=== PATIENT | male | born 1950 | race Caucasian/White ===

== ENCOUNTER → 2021-05-31 | Outpatient (CLI) | payer MEDICARE ==
--- NOTE | 2021-05-31 17:11 | US ---
EXAMINATION TYPE: US duplex aorta DATE OF EXAM: 05/31/2021 COMPARISON: NONE CLINICAL HISTORY: Z13.6 AAA. HTN controlled with meds. EXAM MEASUREMENTS: Abdominal Aorta: Proximal: 2.4 x 2.9 cm Mid: 2.0 x 2.4 cm Distal: 2.5 x 2.9 cm Bifurcation: Right - 1.1 x 1.1 cm Left- 1.3 x 0.8 cm Prominent distal bulge = 2.7 x 3.0 cm IMPRESSION: There is some fusiform prominence of the mid to distal abdominal aorta with an AP diamete r of 2.7 cm.
== END | disposition home or self-care (01) ==
LOC: CPPFTMAIN 06:57
PROVIDERS: ATTEND Internal Medicine
DX: Z13.6 Encounter for screening for cardiovascular disorders (principal); Z87.09 Personal history of other diseases of the respiratory system
CPT/HCPCS: 93979; 94060; 94726; 94729

== ENCOUNTER → 2021-09-06 | Outpatient (CLI) | payer MEDICARE ==
--- NOTE | 2021-09-06 15:15 | CTL ---
EXAMINATION TYPE: CT Low Dose Lung DATE OF EXAM ORDERED: 09/06/2021 HISTORY: Nicotine dependence. Lung cancer screening CT DLP: 92.[address] CTDI: 2.6 mGy Automated exposure control for dose reduction was used. SCREENING VISIT: First screening COMPARISON: None TECHNIQUE: Low dose computed tomography scan was performed through the chest at 1 mm thick sections a nd reconstructed images in multiple planes at 1 mm and [address] DIAGNOSTIC QUALITY: Satisfactory FINDINGS: LUNG NODULES/PARENCHYMA: No pulmonary nodules. Peripheral right upper lobe pleural parenchymal scarri ng. LUNGS: COPD: Severity: None Fibrosis: Severity: None Lymph nodes: None Other findings: None RIGHT PLEURAL SPACE: Effusion: None Calcification: None Thickening: None Pneumothorax: None LEFT PLEURAL SPACE: Effusion: None Calcification: None Thickening: None Pneumothorax: None HEART: Heart Size: Normal Coronary Calcification: Small Pericardial Effusion: None OTHER FINDINGS: Upper abdomen: None Bony thorax: None Supraclavicular region: None Other: None IMPRESSION: No concerning pulmonary nodules. CT LUNG RAD AND CT CHEST RECOMMENDATION: Lung-Rad 1 Negative: Continue annual screening with LDCT in 12 months. S Modifier (other clinically significant findings): None
== END | disposition home or self-care (01) ==
LOC: RADCTMAIN 13:17
PROVIDERS: ATTEND Internal Medicine
DX: Z12.2 Encounter for screening for malignant neoplasm of respiratory organs (principal); Z87.891 Personal history of nicotine dependence
CPT/HCPCS: 71271

== ENCOUNTER → 2021-09-13 | Outpatient (CLI) | payer MEDICARE ==
[~2021-09-13] MED LIST: REGADENOSON 0.4 MG/5 ML SYRINGE IV PRN
--- NOTE | 2021-09-13 09:17 | US ---
EXAMINATION TYPE: US liver DATE OF EXAM: 09/13/2021 COMPARISON: NONE CLINICAL HISTORY: R06.00 DYSPNEA. Abnormal labs TECHNIQUE: Multiple sonographic images of the right upper quadrant are obtained. FINDINGS: EXAM MEASUREMENTS: Liver Length: 22 cm Gallbladder Wall: 0.2 cm CBD: 0.4 cm Right Kidney: 11.8 x 5.5 x 6.5 cm ERISA ATTORNEY NOTES: Large pt body habitus Pancreas: Obscured by bowel gas, and pt's large size Liver: Enlarged, heterogeneous, difficult to penetrate. Hyperechoic echotexture. Gallbladder: wnl Evidence for sonographic Leo's sign: No CBD: wnl Right Kidney: No evidence of hydro, echogenic focus upper pole= 0.6 x 0.6 cm IMPRESSION: 1. Hepatocellular disease most commonly relating to hepatic steatosis. 2. No obstructive right renal calculus.
--- NOTE | 2021-09-13 12:27 | CA ---
Lexiscan Nuclear Stress Test Report Name: Emile Youngblood Exam Date: 09/13/2021 09:36 Exam Location: [place] Stress Ht (in): 69 Wt (lb): 260 BSA: 2.31 Ordering Phys: Jr Parmar MD Referring Phys: RALPH, Technologist: Slim Pérez Age: 70 Gender: M : 1950 Procedure CPT: Indications: R06.00 Dyspnea ICD-10 Codes: Patient History: Medications: ATORVASTATIN, EZETIMIBIDE, FLEXOROL, ASPIRIN, JASON, D3 Meds past 24 hrs: Pretest Chest Pain: STRESS TEST Lexiscan Protocol Exercise Duration (min:sec): 02:[address] Depressions (mm): Angina Score: Darden Score: Resting HR (bpm): 72 Peak HR (bpm): 85 Resting BP (mmHg): 133 / 84 Peak BP (mmHg): 145 / 90 MPHR: 152 Target HR: 129 % MPHR: 56 METS: 1.0 Total Dose: Peak Dose: Atropine: Double Product: 64797 BP Response: Stress Termination: Stress Symptoms: NO SYMPTOMS Stress Summary: ECG ANALYSIS Resting ECG: Stress ECG: CONCLUSIONS Baseline heart rate 74 beats a minute, Baseline blood pressure 133/84 mmHg Patient received Lexiscan infusion per protocol No ECG evidence of ischemia No arrhythmias Nuclear portion will be reported separately Dr. Shant Noriega MD (Electronically Signed) Final Date: 13 September 2021 12:26
--- NOTE | 2021-09-13 16:38 | NM ---
EXAMINATION TYPE: NM stress lexiscan cardiolite DATE OF EXAM: 09/13/2021 COMPARISON: NONE HISTORY: Dyspnea TECHNIQUE: After the intravenous administration of 10.2 mCi Tc 99m Sestamibi - Cardiolite resting SP ECT images acquired 65 minutes post injection. At peak stress 24.6 mCi Tc 99m Sestamibi - Stress images obtained 45 minutes post injection The patient was stressed with 0.4mg Lexiscan. FINDINGS: No fixed or reversible perfusion defects are evident. Color maps appear normal. Gated wall motion dipak ears normal. Ejection fraction of 63% is normal. Polar maps are normal. IMPRESSION: 1. No stress-induced ischemic change
== END | disposition home or self-care (01) ==
LOC: RADUSWWP 06:43
PROVIDERS: ATTEND Internal Medicine
DX: R74.01 Elevation of levels of liver transaminase levels (principal); R06.00 Dyspnea, unspecified
CPT/HCPCS: 93017; 76705; 78452; A9500; J2785

== ENCOUNTER → 2022-06-28 | Outpatient (CLI) | payer MEDICARE ==
--- NOTE | 2022-06-28 11:15 | US ---
EXAMINATION TYPE: US duplex aorta DATE OF EXAM: 06/28/2022 COMPARISON: 05/31/21 CLINICAL INDICATION: Male, 71 years old with history of I71.40 AAA; ectatic distal ao TECHNIQUE: Multiple sonographic images of the abdominal aorta are obtained. FINDINGS: EXAM MEASUREMENTS: Abdominal Aorta: Proximal: 3.2 x 3.2 cm Mid: 2.3 x 2.8 cm Distal: 3.1 x 3.8 cm Bifurcation: right ADRIANE: 1.3x1.2 left ADRIANE: 1.4x1.2 TOYS INSPECTOR NOTES: Proximal Aorta measures aneurysmal, distal fusiform bulging area noted on previous exam again seen on today's ultrasound. exam limited due to body habitus and overlying bowel gas IMPRESSION: Fusiform dilation of the proximal aorta up to 3.[address] cm[address] to prior CT in 2021 appears stable giv en differences in technique.
== END | disposition home or self-care (01) ==
LOC: RADUSWWP 10:03
PROVIDERS: ATTEND Internal Medicine
DX: I71.40 Abdominal aortic aneurysm, without rupture, unspecified (principal)
CPT/HCPCS: 93979

== ENCOUNTER → 2022-07-20 | Outpatient (CLI) | payer MEDICARE ==
[2022-07-20 14:09] LABS: African American GFR (CKD) >90 (>60 ml/min/1.73 sqM); Blood Urea Nitrogen 18 mg/dL (9-20); Non-African American GFR(CKD) 89 (>60 ml/min/1.73 sqM)
--- NOTE | 2022-07-20 20:48 | CT ---
EXAMINATION TYPE: CT angio abd aorta w/Runoff CT DLP: 3304.30 mGycm, Automated exposure control for dose reduction was used. DATE OF EXAM: 07/20/2022 3:46 PM COMPARISON: Aortic ultrasound 06/28/2022, 05/31/2021, liver ultrasound 09/13/2021. CLINICAL INDICATION:Male, 71 years old with history of I71.40; PHH, Abdominal aorta without rupture, some numbness through legs. TECHNIQUE: Multiple thin slice sub-millimeter images were obtained through the abdomen, pelvis, and l ower extremities before and after administration of contrast. Patient was given Isovue 370, 125 cc i ntravenously. Maximum intensity projection images were obtained of the abdomen, pelvis, and lower ext remities. FINDINGS: CTA Abdomen and pelvis: Stable infrarenal fusiform abdominal aortic aneurysm measuring up to the 3.1 cm (series 5, image 129). Atherosclerotic plaquing is identified within the abdominal aorta. The misbah gins of the superior mesenteric artery, renal arteries, inferior mesenteric artery, and celiac axis a re patent. Incidental variant of common hepatic artery replaced from the SMA. Atherosclerotic plaqui ng with some mural thrombus formation is identified in the common iliac arteries. There is approxima tely 50% short segment stenosis of the right common iliac artery secondary to calcified and noncalcif ied plaque. CTA Lower extremities: Right: The common femoral and superficial femoral arteries are patent. The popliteal artery is patent . Mild atherosclerotic plaque involving the distal aspect of the superficial femoral artery. Anterior and posterior tibial arteries as well as the peroneal artery are patent. Anterior and posterior tibi al arteries cross the ankle. Left: The common femoral and superficial femoral arteries are patent. The popliteal artery is patent. Mild atherosclerotic plaque involving the distal aspect of the superficial femoral artery. Anterior and posterior tibial arteries as well as the peroneal artery are patent. Anterior and posterior tibia l arteries cross the ankle. VISCERA: The liver, spleen, adrenal glands, kidneys, pancreas, and gallbladder are not optimally enha nced due the arterial phase utilized. LIVER: Diffusely hypoattenuating parenchyma consistent with steatosis. Subcentimeter right hepatic lo be hypodense focus likely representing a shunt or flash filling hemangioma (series 5, image 107). GALLBLADDER AND BILE DUCTS: Unremarkable. PANCREAS: Unremarkable. SPLEEN: Peripheral thin calcification. ADRENAL GLANDS: Unremarkable. KIDNEYS AND URETERS: No evidence of hydronephrosis or renal calculus. The kidneys enhance symmetrical ly. Bilateral subcentimeter hypoattenuating foci which are too small characterize but likely represen t cysts. PELVIS BLADDER: Under distended but grossly unremarkable. REPRODUCTIVE: Coarse calcifications of the prostate gland are identified. ABDOMEN & PELVIS STOMACH AND BOWEL: Stomach and duodenum are unremarkable. No focal bowel wall thickening or surroundi ng inflammatory changes. The appendix is within normal limits. Distal colonic diverticulosis without evidence for acute diverticulitis. No evidence of bowel obstruction. PERITONEUM: No evidence of pneumoperitoneum or free fluid. VASCULATURE: No evidence of aortic aneurysm. MUSCULOSKELETAL: No acute osseous abnormalities. Mild to moderate multilevel degenerative disease mos t prominent involving the lumbar spine. Minimal retrolisthesis of L3 on L4. LYMPH NODES: No gross evidence for lymphadenopathy. SOFT TISSUE/ABDOMINAL WALL: Small fat filled umbilical hernia. Bilateral fat filled inguinal hernias. LOWER CHEST: The visualized lung bases are clear. Lingular 4 mm pulmonary nodule (series 6, image 25) . In a high risk patient, optional CT chest in 12 months. In a low-risk patient, no follow-up is isai mmended. Mild coronary arterial calcifications. Aortic valvular calcifications. IMPRESSION 1. No evidence of vascular occlusion. 2. Redemonstration of infrarenal abdominal aortic aneurysm measuring up to 3.1 cm. 3. Mild atherosclerotic disease involving abdominal aorta and lower extremity vasculature. This is m ost pronounced involving the right common iliac artery with approximately 50% stenosis secondary to c alcified and noncalcified plaque. 4. At least two vessels are seen crossing the ankle joint.
== END | disposition home or self-care (01) ==
LOC: RADCTMAIN 13:23
PROVIDERS: ATTEND Internal Medicine
DX: I71.43 Infrarenal abdominal aortic aneurysm, without rupture (principal); I70.0 Atherosclerosis of aorta
CPT/HCPCS: 82565; 84520; 75635; Q9967

== ENCOUNTER → 2022-09-07 | Outpatient (CLI) | payer MEDICARE ==
--- NOTE | 2022-09-07 14:38 | CTL ---
EXAMINATION TYPE: CT Low Dose Lung DATE OF EXAM: 09/07/2022 11:06 AM CLINICAL INDICATION:Male, 71 years old with history of Z12.2 F17.210; personal tobacco use , history of tobacco use. COMPARISON: 09/06/2021. TECHNIQUE: Multiple axial non-contrast scans were obtained from approximately the lung apices through the upper abdomen. Coronal and sagittal reformatted images were obtained. Low dose technique was uti lized. CT DLP: 147 mGycm, Automated exposure control for dose reduction was used. CT Contrast: Contrast used: None Oral contrast used: None FINDINGS: ======== Lack of intravenous contrast and low dose technique limits the evaluation of the vascular and soft ti ssue structures. LUNGS: No evidence of pulmonary fibrosis. No evidence of focal consolidation, pneumothorax or pleural effusion. Mild centrilobular emphysema changes are seen throughout the lungs. Nodules: RUL: Increased soft tissue within the right upper lung irregular shaped consolidation comparing t o prior on 09/06/2021. RML: 3 mm series 3 image 167 RLL: None. PANDA: 4 mm series 3 image 88. Stable. LLL: None. AIRWAY: Patent and unremarkable. HEART: Size within normal limits. Aortic valve leaflet calcifications. Coronary artery cusp patient's . MEDIASTINUM: No gross evidence of adenopathy. VASCULATURE: Atherosclerotic calcifications are present throughout the aorta and its branches. MUSCULOSKELETAL: Mild disc degeneration changes are present throughout the thoracolumbar spine. SOFT TISSUES/LYMPH NODES: Unremarkable. LOWER NECK: No significant findings. UPPER ABDOMEN: No significant findings. IMPRESSION: Limited right upper lung which appear more prominent exam. Given increase in solid component compared to prior which is minimal, Consideration for PET/CT may be of benefit to rule out underlying neoplas m. No lymphadenopathy.77 CT LUNG RAD AND CT CHEST RECOMMENDATION: Lung-Rad 4A Suspicious: PET/CT S Modifier (other clinically significant findings): None Recommend smoking cessation (if current smoker), or continuation of smoking cessation (if prior smoke r). Annual screening for lung cancer with low-dose computed tomography is recommended in adults ages 55 to 77 years who have a 30 pack-year smoking history and currently smoke or have quit within the pa st 15 years. Screening should be discontinued once a person has not smoked for 15 years or develops a health problem that substantially limits life expectancy or the ability or willingness to have curat agnieszka lung surgery. Lung rads 2021 [email or web address]
== END | disposition home or self-care (01) ==
LOC: RADCTMAIN 10:35
PROVIDERS: ATTEND Internal Medicine
DX: Z12.2 Encounter for screening for malignant neoplasm of respiratory organs (principal); R91.1 Solitary pulmonary nodule; Z87.891 Personal history of nicotine dependence
CPT/HCPCS: 71271

== ENCOUNTER → 2022-10-21 | Outpatient (CLI) | payer MEDICARE ==
--- NOTE | 2022-10-22 21:19 | PE ---
EXAMINATION TYPE: PET CT fusion skull to thigh DATE OF EXAM: 10/21/2022 CLINICAL INDICATION:Male, 72 years old with history of R91.1; TECHNIQUE: Following the intravenous administration of 12.2 mCi of F-18 FDG, whole body images are performed from the skull base to the midthigh. Images are reviewed on the computer in the coronal, a xial, and sagittal planes. Reconstructed rotating images are created on independent workstation and reviewed on the computer. A non-contrast CT is performed in conjunction with the PET scan. Glucose level 84 mg/dL CT DLP: 527.4 mGycm, Automated exposure control for dose reduction was used. COMPARISON: CT 09/07/2022: 09/06/2021, PET/CT None, FINDINGS: Mediastinal SUV mean is 2.4. Hepatic parenchyma SUV mean is 4.5. SKULL BASE AND NECK: No suspicious radiotracer activity. CHEST, MEDIASTINUM, AND HILAR REGION: Peripheral right upper lung irregular shaped consolidation like change which appears to increased in consolidation compared to 09/06/2021 Max SUV 3.8 ABDOMEN AND PELVIS: No suspicious radiotracer activity. MUSCULOSKELETAL STRUCTURES: No suspicious radiotracer activity. OTHER CT: Atherosclerosis of the carotid bifurcations. Mild coronary artery calcifications. Scattered colonic diverticula. Bilateral fat-containing inguinal hernias. Infrarenal abdominal aorta aneurysma l fusiform dilation up to 3.1 cm. Fat-containing umbilical hernia. Scattered colonic diverticula. IMPRESSION: 1. Right upper lung consolidation like changes with mild FDG activity. Findings are suspicious for u nderlying neoplasia given the lesion has steadily increased in consolidation/soft tissue component co mpared to 09/06/2021. Infectious/inflammatory process could remain in the differential as well. Consid er robotic navigational bronchoscopy with tissue sampling. 2. Diffuse elevated background FDG activity within the liver correlate with serum markers.
== END | disposition home or self-care (01) ==
LOC: RADPETMAIN 10:34
PROVIDERS: ATTEND Internal Medicine
DX: R91.1 Solitary pulmonary nodule (principal); R94.5 Abnormal results of liver function studies
CPT/HCPCS: 78815; A9552

== ENCOUNTER → 2022-11-15 | Day surgery (SDC) | payer MEDICARE ==
[2022-11-10 15:18] VITALS: BMI 38.4
[~2022-11-15] MED LIST changes: +GLYCOPYRROLATE 0.2 MG/ML 2 ML VIAL ONE; +HYDROmorphone 0.5 MG/0.5 ML SYRINGE IVP PRN; +LACTATED RINGERS 1,000 ML IV SCH; +LIDOCAINE 2% INJ 20 MG/ML (2 ML VIAL) ONE; +MIDAZOLAM 2 MG/2 ML VIAL ONE; +NEOSTIGMINE 1 MG/ML 10 ML VIAL ONE; +ONDANSETRON 4 MG/2 ML VIAL IVP ONE; +PHENYLEPHRINE-0.9% NACL SYG 1,000 MCG/10 ML SYRINGE ONE; +PROPOFOL 10 MG/ML 20 ML VIAL IV ONE; -REGADENOSON 0.4 MG/5 ML SYRINGE IV PRN; +ROCURONIUM 10 MG/ML (5 ML VIAL) IV ONE; +SODIUM CHLORIDE 0.9% 500 ML 500 ML IV ONE; +SUCCINYLCHOLINE CHLORIDE 200 MG/10 ML VIAL IV ONE; +fentaNYL (PF) 50 MCG/ML 2 ML AMP ONE
--- NOTE | 2022-11-15 12:38 | CT ---
EXAMINATION TYPE: CT chest wo con CT DLP: 976.2 mGycm, Automated exposure control for dose reduction was used. DATE OF EXAM: 11/15/2022 12:15 PM COMPARISON: 10/21/2022/CT CLINICAL INDICATION:Male, 72 years old with history of R91.1 Solitary Pulmonary Nodule; PHH, Solitary Pulmonary Nodule. pre ion procedure TECHNIQUE: Multiple axial images were obtained through the chest. Sagittal and coronal reformats were created for review. Contrast used: mL of (None if empty) Oral contrast used: (None if empty) FINDINGS: LUNGS/ PLEURA: Right upper lung cystic and solid lesion remains present and may be mildly increased i n size in soft tissue component compared to prior. Whether this presents irregular shaped neoplasm ve rsus consolidation from atelectasis is unclear. The soft tissue component measuring 17 x 8 mm anterio rly and superiorly was previously 16 x 7 mm and previously on 09/05/2022 this area was not well visual ized. No evidence for focal consolidation pneumothorax or pleural effusion. AIRWAY: Patent and unremarkable. HEART: Size within normal limits. MEDIASTINUM: No gross evidence of adenopathy. No greater than 1.0 cm short axis lymph nodes identifie d VASCULATURE: No aortic aneurysm. MUSCULOSKELETAL: No acute osseous abnormalities SOFT TISSUES/LYMPH NODES: Unremarkable. LOWER NECK: No significant findings. UPPER ABDOMEN: No significant findings. IMPRESSION: There may be mild fractionally larger soft tissue component of this right upper lung irregular shaped cystic and solid mass compared to immediate prior on 10/21/2022. It is definitely increased since 09/05.
--- NOTE | 2022-11-15 15:47 | FL ---
Intraoperative/procedural fluoroscopic services were provided for fluoroscopic guided bronchoscopy. T otal fluoroscopy time is 3.07 minutes with a total of 1 submitted image to PACS. Total DAP 16.838 Gyc m2. Please see the operative note for further details.
[2022-11-15 15:53] VITALS: TEMP 97.9
--- NOTE | 2022-11-15 15:54 | P.PCN ---
Date of Procedure: 11/15/22 Operative Findings: Preoperative Diagnosis: Right upper lobe nodule Postoperative Diagnosis: Right upper lobe nodule Procedure(s) Performed: Flexible bronchoscopy Robotic-assisted bronchoscopy and addition to radial ultrasound evaluation of the pulmonary nodule Robotic-assisted transbronchial needle aspirate, transbronchial biopsies of the right upper lobe nodule in addition to a bronchioloalveolar lavage Anesthesia: DESTINEE Surgeon: Manfred Medeiros Estimated Blood Loss (ml): 0 Pathology: other Condition: stable Disposition: same day Operative Findings: A physical exam was performed. Informed consent was obtained from the patient after explaining all the risks (pneumothorax, life threatening bleeding, infection and adverse effects due to medications), benefits and alternatives to the procedure which the patient appeared to understand and so stated. The patient was connected to the monitoring devices. General anesthesia was induced and the patient was intubated by anesthesia. A final timeout was performed and the procedure confirmed by the attending staff bronchoscopist. The bronchoscope was inserted and the airway examined. The flexible bronchoscope was removed and the robotic bronchoscope was inserted. Registration was completed. I next guided the robotic bronchoscope using the navigation system into the right upper lobe posterior segment. Once in proper position, the bronchoscope was frozen. The radial EBUS probe was placed through the bronchoscope and confirmed abnormal u/s images vs normal lung. A needle was placed through the working channel and under fluoroscopic guidance, we sampled the area thought to have the mass twice. We then used a cloud biopsy pattern with ultrasound confirmation for 2 additional passes with the needle. U/S evaluation was then used to reconfirm location. Forceps were next introduced through working channel and extended the appropriate distance and 3 transbronchial biopsies were performed using fluoroscopic guidance. The u/s probe was then reinserted to confirm location. When confirmed this process was repeated for a total of 6 transbronchial biopsies. After reassessment with EBUS, a brush was placed through the extendable working channel for 1 pass with fluoroscopic guidance. U/S evaluation was then used to confirm location. 40ml of saline was then instilled into the area of the lesion. The robotic bronchoscope was removed and the airway inspected with a flexible bronchoscope and 10 ml of effluent from the BAL was collected. The aspirate was bloody and ultimately declotted and based on that, the sample was discarded. Flex. bronchoscope was inserted and regular suctioning was done. At the completion of the procedure, no residual secretions or bloody material within the airway. The bronchoscope was removed. The patient was extubated. FINDINGS: 1.The airways appeared normal 2 Successful navigation, ultrasonographic identification, and biopsies of right upper lobe pulmonary nodule 3.The the radial ultrasound view was (Concentric/Eccentric)}. RECOMMENDATIONS: Await pathology and cytology results The referring physician will be alerted to the results when available. The patient was advised to follow up with the referring physician with the biopsy results Patient will be called with results.
--- NOTE | 2022-11-15 16:12 | XR ---
EXAMINATION TYPE: XR chest 1V portable DATE OF EXAM: 11/15/2022 4:08 PM COMPARISON: CT chest 11/15/2022 TECHNIQUE: XR chest 1V portable Portable AP radiograph of the chest. CLINICAL INDICATION:Male, 72 years old with history of POST BRONCH; FINDINGS: Lungs/Pleura: There is no evidence of pleural effusion, focal consolidation, or pneumothorax. Pulmonary vascularity: Unremarkable. Heart/mediastinum: Cardiomediastinal silhouette is unremarkable. Musculoskeletal: No acute osseous pathology. IMPRESSION: Post bronchoscopy without evidence for pneumothorax.
[2022-11-15 16:16] VITALS: RESP 20
[2022-11-15 16:50] VITALS: BP 128/76; PULSE 86
== END ==
LOC: ORWHC2ENDO 11:45
PROVIDERS: ATTEND Internal Medicine Critical Care Medicine
DX: R91.1 Solitary pulmonary nodule (principal); I10 Essential (primary) hypertension; E78.5 Hyperlipidemia, unspecified; F17.200 Nicotine dependence, unspecified, uncomplicated; M19.90 Unspecified osteoarthritis, unspecified site; K76.0 Fatty (change of) liver, not elsewhere classified; Z79.1 Long term (current) use of non-steroidal anti-inflammatories (NSAID); Z79.82 Long term (current) use of aspirin; Z79.899 Other long term (current) drug therapy; Z98.890 Other specified postprocedural states
CPT/HCPCS: 88108; 88305; 87070; 87205; 87116; 87102; 87206; 71045; 71250; 31628; 31629; 31624; J2250; J0330; J2710; J2405; J3010; J2704; J2001; J2371; S2900

== ENCOUNTER → 2023-05-22 | Outpatient (CLI) | payer MEDICARE ==
--- NOTE | 2023-05-22 10:36 | MR ---
EXAMINATION TYPE: MR knee LT wo con DATE OF EXAM: 05/22/2023 COMPARISON: None HISTORY: Left knee pain and swelling x1 year TECHNIQUE: Multiplanar, multisequence imaging of the left knee is performed without IV contrast. FINDINGS: MEDIAL MENISCUS: There is a complex tear involving posterior horn of the medial meniscus. LATERAL MENISCUS: Anterior and posterior horns are intact without tear. CRUCIATE LIGAMENTS: The anterior and posterior cruciate ligaments are intact and unremarkable. COLLATERAL LIGAMENTS: The medial collateral ligament and lateral collateral ligament complex are inta ct. No definite tear is seen. There is increased signal surrounding the medial collateral ligament co mpatible with grade 1 sprain. EXTENSOR MECHANISM: Visualized quadriceps and patellar tendons are intact. There is a small suprapate llar bursal fluid collection. EFFUSION: No significant suprapatellar joint effusion. POPLITEAL CYST: There is a 2.3 x 2.3 x 5.0 cm popliteal fossa cyst. TRICOMPARTMENT SPACES: There is mild narrowing of joint spaces. Tiny marginal spurring noted. CARTILAGE: There is grade II chondromalacia of the articular femoral and tibial cartilage. BONE MARROW SIGNAL: No focal abnormal marrow signal is appreciated. Other: Mild subcutaneous edema. IMPRESSION: 1. Complex tear posterior horn medial meniscus. 2. A large popliteal fossa cyst measuring 2.3 x 2.3 x 5.0 cm. 3 Mild osteoarthritis. There is grade II chondromalacia involving the articular medial femoral and ti bial cartilage. 4. Grade 1 MCL sprain.
== END | disposition home or self-care (01) ==
LOC: RADMRIMAIN 09:19
PROVIDERS: ATTEND Internal Medicine
DX: S83.232A Complex tear of medial meniscus, current injury, left knee, initial encounter (principal); S83.412A Sprain of medial collateral ligament of left knee, initial encounter; M17.12 Unilateral primary osteoarthritis, left knee; M94.262 Chondromalacia, left knee; X58.XXXA Exposure to other specified factors, initial encounter

== ENCOUNTER → 2023-06-11 | Outpatient (CLI) | payer MEDICARE ==
[2023-06-11 12:09] LABS: African American GFR (CKD) >90 (>60 ml/min/1.73 sqM); Blood Urea Nitrogen 17 mg/dL (9-20); Non-African American GFR(CKD) 88 (>60 ml/min/1.73 sqM)
--- NOTE | 2023-06-13 21:36 | CT ---
EXAMINATION TYPE: CT chest w con DATE OF EXAM: 06/11/2023 COMPARISON: 11/15/2022, PET/CT 923 HISTORY: f/u nodules CT DLP: 747 mGycm, Automated exposure control for dose reduction was used. CONTRAST: Performed injected with 100 mL of Isovue 300. TECHNIQUE: Axial images were obtained at 5 mm thick sections. Reconstructed images are reviewed on [employer] computer in the coronal plane. FINDINGS: Portion of the thyroid visualized is normal. There is an irregular density extending from the pleural margin in the lateral right apex into the ri ght upper lobe. This is changed configuration from the comparison study. Direct measurement correlati on cannot be performed. Best estimate current measurements is 2.0 x 2.0 cm with extension to the ante rior lateral right pleural margin. Overall findings appear somewhat similar although the more central 2 cm area may be increased in size over the interval. PET/CT is recommended for additional evaluatio n. No enlarged mediastinal or hilar adenopathy is evident. The ascending aorta diameter at the level o f the main pulmonary artery is 4.1 cm. The main pulmonary artery diameter at the bifurcation is 3.0 cm. Coronary artery calcifications present. Limited CT sections are obtained through the upper abdomen. There is some mild fatty gestation of the liver. IMPRESSION: 1. There appears to be a slow progression of the irregular masslike area at the lateral right apex. R eevaluation with PET/CT is recommended.
== END | disposition home or self-care (01) ==
LOC: RADCTMAIN 11:26
PROVIDERS: ATTEND Internal Medicine Critical Care Medicine
DX: R91.1 Solitary pulmonary nodule (principal)
CPT/HCPCS: 82565; 84520; 71260; 36415; Q9967

== ENCOUNTER → 2023-12-17 | Outpatient (CLI) | payer MEDICARE ==
[2023-12-17 13:42] LABS: African American GFR (CKD) >90 (>60 ml/min/1.73 sqM); Blood Urea Nitrogen 14 mg/dL (9-20); Non-African American GFR(CKD) >90 (>60 ml/min/1.73 sqM)
--- NOTE | 2023-12-17 14:22 | CT ---
EXAMINATION TYPE: CT chest w con DATE OF EXAM: 12/17/2023 COMPARISON: 06/11/2023 CLINICAL INDICATION: Male, 73 years old with history of R91.1 SOLITARY PULMONARY NODULE; PHH, Solitar y Pulmonary Nodule TECHNIQUE: CT scan of the chest is performed with IV Contrast, patient injected with 100 ml mL of Isovue 300. M IP Images are created on CT scanner and reviewed. 3D reconstructed images are created on an [employer] workstation and reviewed. CT DLP: [address] CTDI: mGy Automated exposure control for dose reduction was used. FINDINGS: CT chest with contrast HISTORY: Follow-up right upper lobe nodule COMPARISON: 06/11/2023. TECHNIQUE: Multiple axial images are obtained through the thorax following the uneventful menstruatio n nonionic IV contrast material. FINDINGS: The ill-defined right upper lobe mass has increased in size from 2 x 2 cm to approximately 2.8 x 3.5 cm. There is a new small 4 mm satellite nodule. There are interstitial densities extending to the ant erior pleural surface which are relatively stable. The left lung is clear. There is no pleural effusion or pneumothorax. The great vessels the chest are normal and there is no mediastinal, hilar or axillary adenopathy. Limited scanning through the upper abdomen reveals liver steatosis. No focal osseous lesions are seen. IMPRESSION: Growing spiculated mass in the right upper lobe with satellite lesion highly suspicious for neoplasm and further workup is warranted [facility], , 12/17/2023 2:20 PM
== END | disposition home or self-care (01) ==
LOC: RADCTMAIN 12:08
PROVIDERS: ATTEND Internal Medicine Critical Care Medicine
DX: R91.1 Solitary pulmonary nodule (principal)
CPT/HCPCS: 82565; 84520; 71260; 36415; Q9967

== ENCOUNTER 2024-01-03 11:00 | Day surgery (SDC) | payer MEDICARE ==
[2024-01-02 09:08] VITALS: BMI 38.4
[~2024-01-03 11:00] MED LIST changes: -GLYCOPYRROLATE 0.2 MG/ML 2 ML VIAL ONE; -HYDROmorphone 0.5 MG/0.5 ML SYRINGE IVP PRN; +LIDOCAINE 1% (10MG/ML) FOR IV START INTRADERMA PRN; -LIDOCAINE 2% INJ 20 MG/ML (2 ML VIAL) ONE; -MIDAZOLAM 2 MG/2 ML VIAL ONE; -NEOSTIGMINE 1 MG/ML 10 ML VIAL ONE; -ONDANSETRON 4 MG/2 ML VIAL IVP ONE; -PHENYLEPHRINE-0.9% NACL SYG 1,000 MCG/10 ML SYRINGE ONE; -PROPOFOL 10 MG/ML 20 ML VIAL IV ONE; -ROCURONIUM 10 MG/ML (5 ML VIAL) IV ONE; -SODIUM CHLORIDE 0.9% 500 ML 500 ML IV ONE; -SUCCINYLCHOLINE CHLORIDE 200 MG/10 ML VIAL IV ONE; -fentaNYL (PF) 50 MCG/ML 2 ML AMP ONE
--- NOTE | 2024-01-03 11:46 | CT ---
EXAMINATION TYPE: CT Chest wo ION protocol DATE OF EXAM: 01/03/2024 COMPARISON: 12/17/2023 CLINICAL INDICATION: Male, 73 years old with history of ION BRONCH; PHH, Ion bronchoscopy TECHNIQUE: CT scan of the thorax is performed without IV contrast. CT DLP: [address] CTDI: mGy Automated exposure control for dose reduction was used. FINDINGS: LUNGS: The lungs are grossly clear, there is no concerning parenchymal mass or nodule identified. T here is no pleural effusion or pneumothorax seen. The tracheobronchial tree is patent. MEDIASTINUM: Lack of IV contrast is noted to limit evaluation for mediastinal and especially hilar ad enopathy. There are no definitive greater than 1 cm hilar or mediastinal lymph nodes. No cardiomega ly or pericardial effusion is seen. OTHER: No additional significant abnormality is seen. IMPRESSION: The ill-defined, spiculated mass in the right upper lobe is again seen. There is a stable small satel lite lesion. There is interstitial density extending to the anterior pleural surface of the right upp er lobe. The left lung remains clear. No pleural effusion or pneumothorax. There is moderate bronchiectasis in the lower lobes. There is no pleural effusion or pneumothorax. 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 There is no mediastinal, hilar or axillary adenopathy. Limited scanning through the upper abdomen reveals no gross abnormality the exception of a nonobstruc ting 4 to 5 mm right renal calcification. No focal osseous lesions are seen. Impression: 1. Ill-defined spiculated mass in the right upper lobe with satellite nodules highly suspicious for n eoplasm. 2. No acute cardiopulmonary disease. 3. Bronchiectasis in the lower lobes. 4. 4.4 cm dilatation of the ascending thoracic aorta. 5. No pleural effusion or adenopathy within the chest. Follow-up recommendations for incidental pulmonary nodules are per [employer] or [employer]. [facility], , 01/03/2024 11:43 AM
[2024-01-03 11:47] VITALS: TEMP 97.6
[2024-01-03] MEDS: IV FLUID CONTINUATION 1,000 ML IV ONE (11:49)
[2024-01-03] MEDS: LACTATED RINGERS 1,000 ML IV SCH (11:50)
[2024-01-03] MEDS: ONDANSETRON 4 MG/2 ML VIAL IVP STA (11:51)
[2024-01-03] MEDS ORDERED: MIDAZOLAM 2 MG/2 ML VIAL ONE (12:33)
[2024-01-03] MEDS ORDERED: KETAMINE HCL IN 0.9 % NACL 50 MG/5 ML SYRINGE ONE (12:33)
[2024-01-03] MEDS ORDERED: LIDOCAINE 1% INJ 10MG/ML (20 ML MDV) ONE (12:33)
[2024-01-03] MEDS ORDERED: SUCCINYLCHOLINE CHLORIDE 200 MG/10 ML VIAL IV ONE (12:33)
[2024-01-03] MEDS ORDERED: NEOSTIGMINE 1 MG/ML 10 ML VIAL ONE (12:33)
[2024-01-03] MEDS ORDERED: PHENYLEPHRINE 10 MG/ML VIAL ONE (12:33)
[2024-01-03] MEDS ORDERED: LIDOCAINE 4% LTA KIT (4 ML) TOPICAL ONE (12:33)
[2024-01-03] MEDS ORDERED: fentaNYL (PF) 50 MCG/ML 2 ML AMP ONE (12:33)
[2024-01-03] MEDS ORDERED: ROCURONIUM 10 MG/ML (5 ML VIAL) IV ONE (12:33)
[2024-01-03] MEDS ORDERED: PROPOFOL 10 MG/ML 20 ML VIAL IV ONE (12:33)
[2024-01-03] MEDS ORDERED: GLYCOPYRROLATE 0.2 MG/ML 2 ML VIAL ONE (12:33)
[2024-01-03] MEDS: LACTATED RINGERS 1,000 ML IV ONE (14:00)
--- NOTE | 2024-01-03 14:17 | P.PCN ---
Date of Procedure: 01/03/24 Operative Findings: Preoperative Diagnosis: Right upper lobe opacity, enlarging Postoperative Diagnosis: Right upper lobe opacity, enlarging Procedure(s) Performed: Flexible bronchoscopy Robotic-assisted bronchoscopy and addition to radial ultrasound evaluation of the pulmonary opacity Robotic-assisted transbronchial needle aspirate, transbronchial biopsies of the right upper lobe opacity in addition to a bronchioloalveolar lavage Anesthesia: DESTINEE Surgeon: Manfred Medeiros Estimated Blood Loss (ml): 0 Pathology: other Condition: stable Disposition: same day Operative Findings: A physical exam was performed. Informed consent was obtained from the patient after explaining all the risks (pneumothorax, life threatening bleeding, infection and adverse effects due to medications), benefits and alternatives to the procedure which the patient appeared to understand and so stated. The patient was connected to the monitoring devices. General anesthesia was induced and the patient was intubated by anesthesia. A final timeout was performed and the procedure confirmed by the attending staff bronchoscopist. The bronchoscope was inserted and the airway examined. The flexible bronchoscope was removed and the robotic bronchoscope was inserted. Registration was completed. I next guided the robotic bronchoscope using the navigation system into the right upper lobe superior segment. Once in proper position, the bronchoscope was frozen. The radial EBUS probe was placed through the bronchoscope and confirmed abnormal u/s images vs normal lung. A needle was placed through the working channel and under fluoroscopic guidance. This point, the position of the catheter and the needle was confirmed using pounding technology. The needle was confirmed to be within the opacity using to the and 3D imaging. We sampled the area thought to have the mass twice. We then used a cloud biopsy pattern with ultrasound confirmation for 2 additional passes with the needle. Rapid onsite evaluation of the samples were done and abnormal cells identified. With regular ultrasound and within a week and a U/S evaluation was then used to reconfirm location. Forceps were next introduced through working channel and extended the appropriate distance and 3 transbronchial biopsies were performed using fluoroscopic guidance. The u/s probe was then reinserted to confirm location. When confirmed this process was repeated for a total of 8 transbronchial biopsies. After reassessment with EBUS, a brush was placed through the extendable working channel for 1 pass with fluoroscopic guidance. U/S evaluation was then used to confirm location. 40ml of saline was then instilled into the area of the lesion. The robotic bronchoscope was removed and the airway inspected with a flexible bronchoscope and 10 ml of effluent from the BAL was collected. The aspirate was bloody and ultimately declotted and based on that, the sample was discarded. Flex. bronchoscope was inserted and regular suctioning was done. At the completion of the procedure, no residual secretions or bloody material within the airway. The bronchoscope was removed. The patient was extubated. FINDINGS: 1.The airways appeared normal 2 Successful navigation, ultrasonographic identification, and biopsies of right upper lobe pulmonary nodule 3.The the radial ultrasound view was Concentric 4 Cone Beam imaging was used to confirm catheter and needle placement RECOMMENDATIONS: Await pathology and cytology results The referring physician will be alerted to the results when available. The patient was advised to follow up with the referring physician with the biopsy results Patient will be called with results.
--- NOTE | 2024-01-03 14:45 | XR ---
EXAMINATION TYPE: XR chest 1V DATE OF EXAM: 01/03/2024 COMPARISON: 11/15/2022 HISTORY: post bx TECHNIQUE: Single frontal view of the chest is obtained. FINDINGS: Right upper lobe nodule identified with spiculation seen. No evidence for pneumothorax. Sca ttered pleural-parenchymal densities persist. IMPRESSION: No pneumothorax postbiopsy [facility], , 01/03/2024 2:43 PM
[2024-01-03 15:08] VITALS: RESP 18
[2024-01-03 15:19] VITALS: BP 130/68; PULSE 80
--- NOTE | 2024-01-03 16:00 | FL ---
Intraoperative/procedural fluoroscopic services were provided for bronchoscopy of the right upper lob e. Total fluoroscopy time is 1 minute 29.6 seconds with a total of 524 submitted images to PACS. Tota l DAP 18.229 Gycm2. Please see the operative note for further details. [facility], , 01/03/2024 3:57 PM
== END 2024-01-03 15:34 | disposition home or self-care (01) ==
LOC: ORWHC2ENDO 11:00
PROVIDERS: ATTEND Internal Medicine Critical Care Medicine
DX: R91.1 Solitary pulmonary nodule (principal); J47.9 Bronchiectasis, uncomplicated; I10 Essential (primary) hypertension; E78.5 Hyperlipidemia, unspecified; I71.40 Abdominal aortic aneurysm, without rupture, unspecified; E66.9 Obesity, unspecified; Z68.39 Body mass index [BMI] 39.0-39.9, adult; Z79.82 Long term (current) use of aspirin; Z79.1 Long term (current) use of non-steroidal anti-inflammatories (NSAID); Z79.899 Other long term (current) drug therapy; Z87.891 Personal history of nicotine dependence
CPT/HCPCS: 87070; 87205; 87116; 87102; 87206; 71045; 71250; 31628; 31629; 31623; 31624; J2250; J0330; J2710; J2405; J2003; J3010; J2704; J2371; J1596; S2900

== ENCOUNTER → 2024-01-30 | Outpatient (CLI) | payer MEDICARE ==
[~2024-01-30] MED LIST changes: -LACTATED RINGERS 1,000 ML IV SCH; -LIDOCAINE 1% (10MG/ML) FOR IV START INTRADERMA PRN; +REGADENOSON 0.4 MG/5 ML SYRINGE IV PRN
--- NOTE | 2024-01-30 11:34 | CA ---
Lexiscan Nuclear Stress Test Report Name: Emile Youngblood Exam Date: 01/30/2024 09:52 Exam Location: [place] Stress Ht (in): 69 Wt (lb): 260 BSA: 2.31 Ordering Phys: Marina Thompson MD Referring Phys: MARINA THOMPSON Technologist: Lawrence Leyva Age: 73 Gender: M : 1950 Procedure CPT: Indications: I25.10 Z01.818 PRE OP ICD-10 Codes: Patient History: DIFFICULTY IN BREATHING, HYPERCHOLESTEROLEMIA, FAMILY HX OF HEART DISEASE, PRIOR SMOKER, HTN, Medications: Meds past 24 hrs: Pretest Chest Pain: STRESS TEST Lexiscan Protocol Exercise Duration (min:sec): 01:[address] Depressions (mm): Angina Score: Darden Score: Resting HR (bpm): 80 Peak HR (bpm): 96 Resting BP (mmHg): 116 / 64 Peak BP (mmHg): 116 / 64 MPHR: 149 Target HR: 127 % MPHR: 64 METS: 1.0 Total Dose: Peak Dose: Atropine: Double Product: 58939 BP Response: Stress Termination: INFUSION COMPLETE Stress Symptoms: NO SYMPTOMS Stress Summary: ECG ANALYSIS Resting ECG: Normal sinus rhythm normal axis normal intervals Stress ECG: Patient was given intravenous Lexiscan as a protocol did not have chest pain or diagnostic ST segment depression CONCLUSIONS Negative stress test by EKG criteria Cardiolite portion of the stress test will be reported separately Dr. Marcus Gallagher MD (Electronically Signed) Final Date: 30 January 2024 11:33
--- NOTE | 2024-01-30 11:57 | NM ---
EXAMINATION TYPE: NM stress lexiscan cardiolite DATE OF EXAM: 01/30/2024 COMPARISON: NONE CLINICAL INDICATION: Male, 73 years old with history of I25.10 Z01.818 PRE OP; TECHNIQUE: After the intravenous administration of 9.5 mCi Tc 99m Sestamibi - Cardiolite resting SPE CT images acquired 45 minutes post injection. The patient received 0.4mg Lexiscan, 25.6 mCi Tc 99m Sestamibi - Stress images obtained [address] injection FINDINGS: Review of stress and rest SPECT images demonstrates no distinct perfusion abnormality. Gated analysi s shows normal wall motion with an estimated left ventricular ejection fraction of 64% %. IMPRESSION: No scintigraphic evidence for reversible ischemia. [facility], , 01/30/2024 11:55 AM
== END | disposition home or self-care (01) ==
LOC: RADNMMAIN 08:16
PROVIDERS: ATTEND Thoracic Surgery (Cardiothoracic Vascular Surgery)
DX: Z01.818 Encounter for other preprocedural examination (principal); I25.10 Atherosclerotic heart disease of native coronary artery without angina pectoris; I10 Essential (primary) hypertension; Z82.49 Family history of ischemic heart disease and other diseases of the circulatory system; E78.00 Pure hypercholesterolemia, unspecified; R06.00 Dyspnea, unspecified; Z87.891 Personal history of nicotine dependence
CPT/HCPCS: 93017; 78452; A9500; J2785

== ENCOUNTER → 2024-02-07 | Outpatient (CLI) | payer MEDICARE ==
[2024-02-07 16:02] LABS: Basophils # (A) 0.05 X 10*3/uL (0.00-0.10); Eosinophils # (A) 0.18 X 10*3/uL (0.04-0.35); Eosinophils % (A) 3.6 %; HCT 45.5 % (39.6-50.0); HGB 14.3 g/dL (13.0-17.0); Lymphocytes # (A) 1.78 X 10*3/uL (0.90-5.00); Lymphocytes % (A) 35.6 %; MCH 24.4 pg (27.0-32.0); MCHC 31.4 g/dL (32.0-37.0); MCV 77.5 FL (80.0-97.0); Monocytes # (A) 0.58 X 10*3/uL (0.20-1.00); Monocytes % (A) 11.6 %; NRBC Per 100 WBC 0 X 10*3/uL (0.00-0.01); Platelet Count 165 X 10*3/uL (140-440); RBC 5.87 X 10*6/uL (4.40-5.60); RDW 14.5 % (11.5-14.5)
[2024-02-07 16:11] LABS: Blood Urea Nitrogen 13.8 mg/dL (9.0-27.0); Carbon Dioxide 22.4 mmol/L (21.6-31.8); Chloride 106 mmol/L (96-109); Glucose 113 mg/dL (70-110); Potassium 4.3 mmol/L (3.5-5.5); Sodium 140 mmol/L (135-145)
[2024-02-07 16:40] LABS: Appearance,Urine Clear (Clear); Bilirubin,Urine Negative (Negative); Blood,Urine Large (Negative); Color,Urine Yellow (Yellow); Ketones,Urine Negative (Negative); Nitrite,Urine Negative (Negative); PH, Urine 5.5; Specific Gravity,Urine 1.016 (1.001-1.030); Urobilinogen,Urine 0.2 E.U./DL
[2024-02-07 16:45] LABS: Bacteria,Urine None Seen (None Seen); INR 0.97 sec (0.93-1.11); Prothrombin Time 10.9 sec (9.9-11.9)
== END | disposition home or self-care (01) ==
LOC: LABPAT 11:32
PROVIDERS: ATTEND Thoracic Surgery (Cardiothoracic Vascular Surgery)
DX: Z01.818 Encounter for other preprocedural examination (principal); E86.0 Dehydration; C34.11 Malignant neoplasm of upper lobe, right bronchus or lung; R58 Hemorrhage, not elsewhere classified; R53.83 Other fatigue; Z79.899 Other long term (current) drug therapy
CPT/HCPCS: 80051; 81001; 82565; 82947; 84520; 85025; 85610; 86850; 86900; 86901; 87086; 93005

== ENCOUNTER 2024-02-14 05:35 | Inpatient (IN) | payer MEDICARE ==
[2024-02-07 15:28] VITALS: BMI 39.1
[2024-02-14] MEDS: IV FLUID CONTINUATION 1,000 ML IV ONE (06:40)
[2024-02-14] MEDS: LACTATED RINGERS 1,000 ML IV SCH (06:40)
[2024-02-14] MEDS: MIDAZOLAM 2 MG/2 ML VIAL IV ONE (07:03)
[2024-02-14] MEDS: fentaNYL (PF) 50 MCG/ML 2 ML AMP IVP PRN (07:03)
[2024-02-14] MEDS: ONDANSETRON 4 MG/2 ML VIAL IVP ONE (07:18)
[2024-02-14] MEDS: DEXAMETHASONE SOD PHOSPHATE 4 MG/ML 1 ML VIAL IV ONE (07:18)
[2024-02-14] MEDS ORDERED: GLYCOPYRROLATE 0.2 MG/ML 2 ML VIAL ONE (07:46)
[2024-02-14] MEDS: ceFAZolin 3 GM in SODIUM CHLORIDE 0.9% 100 ML IVPB PRN (07:46)
[2024-02-14] MEDS ORDERED: LIDOCAINE 1% INJ 10MG/ML (20 ML MDV) ONE (07:46)
[2024-02-14] MEDS ORDERED: PHENYLEPHRINE-0.9% NACL SYG 1,000 MCG/10 ML SYRINGE ONE (07:46)
[2024-02-14] MEDS ORDERED: ROPIVACAINE 5 MG/ML 30 ML VIAL ONE (07:46)
[2024-02-14] MEDS ORDERED: NEOSTIGMINE 1 MG/ML 10 ML VIAL ONE (07:46)
[2024-02-14] MEDS ORDERED: PROPOFOL 10 MG/ML 20 ML VIAL IV ONE (07:46)
[2024-02-14] MEDS ORDERED: SUCCINYLCHOLINE CHLORIDE 200 MG/10 ML VIAL IV ONE (07:46)
[2024-02-14] MEDS ORDERED: ROCURONIUM 10 MG/ML (5 ML VIAL) IV ONE (07:46)
[2024-02-14] MEDS ORDERED: HYDROmorphone (PF) 1 MG/ML ONE (07:46)
[2024-02-14] MEDS ORDERED: fentaNYL (PF) 50 MCG/ML 2 ML AMP ONE (07:46)
[2024-02-14] MEDS ORDERED: KETAMINE HCL IN 0.9 % NACL 50 MG/5 ML SYRINGE ONE (07:46)
[2024-02-14] MEDS ORDERED: ALBUTEROL INHALER 60 PUFF/8 GM INHALER (MHU) INHALATION ONE (07:46)
[2024-02-14 07:56] LABS: Partial Thromboplastin Time 22.6 sec (22.0-30.0)
[2024-02-14] MEDS: BUPIVACAINE (PF) 0.5% 30 ML VIAL SQ ONE (08:24)
[2024-02-14] MEDS: LACTATED RINGERS 1,000 ML IV ONE ×2 (10:09→12:20)
--- NOTE | 2024-02-14 10:48 | P.OP ---
Date of Procedure: 02/14/24 Preoperative Diagnosis: Right upper lobe mass consistent with lung cancer Postoperative Diagnosis: Same Procedure(s) Performed: Robotic assisted thoracoscopic right upper lobectomy with mediastinal lymph node dissection Implants: None Anesthesia: DESTINEE Surgeon: Mariano Thompson Cavity Pump Operator #1: Mykel Quinteros Estimated Blood Loss (ml): 15 IV fluids (ml): 800 Urine output (ml): 300 Pathology: other (Right upper lobe; lymph node stations: R4, R8, R9, level 7, R10, R11) Condition: stable Disposition: PACU Indications for Procedure: 73-year-old male with right upper lobe infiltrative mass discovered initially on the screening CT scan in August 2022. Initial PET was negative and the patient was followed. Serial CT scans showed consistent increase in the size of the abnormality. Repeat PET showed low-grade FDG uptake of this lesion with no evidence of lymphadenopathy or metastasis. Patient underwent robotic bronchoscopy which was "suspicious" for pulmonary adenocarcinoma. Operative Findings: Incomplete fissures, anthracotic lymphadenopathy, relatively peripheral mass posteriorly in the right upper lobe distant from the bronchus without obvious ov erlying pleural involvement. Description of Procedure: Patient was brought to the operating room and placed supine on the operating table. General anesthesia was induced. He was intubated with a double-lumen endotracheal tube which was positioned with fiberoptic bronchoscopy. No endobronchial lesions were noted. Patient was turned to the left lateral decubitus position and appropriately positioned for robotic assisted right upper lobectomy. Right chest was sterilely prepped and draped. Initial incision was made in the eighth interspace in the midaxillary line and 8 mm robotic port was placed. After confirming presence in the pleural space, CO2 insufflation was begun. 212 mm robotic ports were placed anterior and posterior to the initial port. A second 8 mm port was put posteriorly near the superior segment of the right lower lobe. Working port was placed at the level of the diaphragm anteriorly. The robot was docked. Inferior pulmonary ligament was taken down with electrocautery. R9 lymph node was resected and sent for permanent section. Dissection was continued posteriorly and the are 8 and level 7 lymph nodes were dissected. Dissection was carried onto the bronchus and the takeoff of the right upper lobe bronchus from the bronchus intermedius was identified. R11 lymph node was resected in this area. This yielded visualization of the posterior segmental branch of the pulmonary artery which was encircled ligated and divided with a robotic stapler. We are now able to encircle and ligate and divide the right upper lobe bronchus with a robotic green stapler. Further dissection of the R11 lymph nodes in the hilum freed the posterior aspect of the truncus anteriosus. Dissection was now carried anteriorly and the branches of the superior pulmonary vein draining the middle lobe were identified. Dissection was carried superior to this in the branches draining the upper lobe were encircled. They were then ligated and divided with a robotic vascular stapler. Dissection was carried onto the pulmonary artery. There was a small anterior branch of the pulmonary artery going to the upper lobe which was encircled and then ligated and divided with the robotic vascular stapler. We were now able to completely encircle the truncus. This was ligated and divided with a robotic vascular stapler. Lesser and greater fissure between the right upper lobe and the middle lobe and lower lobe respectively was taken with multiple firings of a Endo RITA blue stapler. The lobectomy specimen was now placed in an Endo Catch bag and retracted inferiorly. Dissection was continued just inferior to the azygos vein and the R10 lymph nodes were resected. Superior to the azygos vein the R4 lymph nodes were resected. The robot was now undocked. Working port incision was enlarged and the lobectomy specimen removed intact in the Endo Catch bag. It was sent for permanent section. The chest was irrigated with warm water and the lung inflated under thoracoscopic visualization. There was no evidence of leak from the bronchial stump. Water was suctioned free and a 28 Martiniquais chest tube was placed through the anteriormost incision and positioned posterior apically. It was secured with 0 Ethibond suture. The lung was again inflated under thoracoscopic visualization and the scope was removed. 2 lung ventilation was continued. The incisions were closed with layers of Vicryl suture. Skin glue and dry sterile dressings were applied. Rib blocks were performed posteriorly. Patient was turned supine, extubated and transferred to recovery in stable condition.
[2024-02-14] MEDS ORDERED: ONDANSETRON 4 MG/2 ML VIAL IVP PRN (10:52)
[2024-02-14] MEDS ORDERED: bisacodyL 10 MG SUPP RECTAL PRN (10:52)
[2024-02-14] MEDS ORDERED: ACETAMINOPHEN TAB 500 MG TAB PO PRN (10:52)
[2024-02-14] MEDS ORDERED: METOCLOPRAMIDE 5 MG/ML 2 ML VIAL IVP PRN (10:52)
[2024-02-14] MEDS ORDERED: IPRATROPIUM-ALBUTEROL 3 ML NEB IH PRN (10:52)
[2024-02-14] MEDS: HYDROmorphone 0.5 MG/0.5 ML SYRINGE IVP PRN (10:59)
--- NOTE | 2024-02-14 12:05 | XR ---
EXAMINATION TYPE: XR chest 1V portable DATE OF EXAM: 02/14/2024 11:19 AM COMPARISON: 01/03/2024 CLINICAL INDICATION: Male, 73 years old with history of Postop right upper lobectomy, TECHNIQUE: XR chest 1V portable view(s) obtained. FINDINGS: The heart size is mildly prominent. The pulmonary vasculature is normal. Mild increased lung markings are within the residual right lung. No cysts or pneumothorax is evident. Minimal subcutaneous emphysema is present. IMPRESSION: 1. Right-sided chest tube in position. No pneumothorax evident post lobectomy. Some minimal subcutane ous air is at the base of the right neck. 2. Mild cardiomegaly. 3. Mild segmental atelectasis within the right lower lung field. [facility], , 02/14/2024 12:02 PM
[2024-02-14] MEDS: traMADol 50 MG TAB PO PRN (15:09)
[2024-02-14] MEDS: DEXTROSE 5%-0.45% NACL 1,000 ML IV SCH (15:10)
[2024-02-14] MEDS: IPRATROPIUM-ALBUTEROL 3 ML NEB IH SCH (15:38)
--- NOTE | 2024-02-14 16:50 | P.CNPUL ---
History of Present Illness Consult date: 02/14/24 Requesting physician: Mariano Thompson Reason for consult: COPD, lung mass, abnormal CXR/CT Chief complaint: Lung cancer. History of present illness: Pulmonary consult dated February 14, 2024. 73-year-old male with a history of hypertension, hyperlipidemia, previous heavy tobacco use, who is postop day #0, status post robotically assisted right upper lobectomy and mediastinal lymph node dissection. The surgery was done by Dr. Thompson. The patient was evaluated by my partner, and apparently had robotic bronchoscopy. Apparently the pathology on that procedure, suggested atypical cells, consistent with non-small cell lung cancer. The initial procedure by my partner was done on January 04, 2024. Atypical cells, were suspicious for non- small cell carcinoma. The patient is seen today in room 379. He is currently on 3 L of oxygen. He is getting D5 with half-normal saline at 40 cc an hour. He did smoke for 45 years. He quit 9 years ago. No laboratory data as yet on the chart. There is a PT of 11, and INR of 1, and a PTT of 22.6. Chest x-ray shows a right sided chest tube, without pneumothorax. Review of Systems REVIEW OF SYSTEMS: CONSTITUTIONAL: [Negative.] NEUROLOGIC: [ Negative.] HEENT: [ Negative.] CARDIAC: [Negative.] PULMONARY: [Negative.] GI: [Negative.] : [Negative.] RHEUMATOLOGIC: [ Negative.] IMMUNOLOGIC: [ Negative.] ENDOCRINE: [Negative. ] DERMATOLOGIC: [Negative.] Past Medical History Past Medical History: Cancer, Hearing Disorder / Deafness, Hyperlipidemia, Hypertension Additional Past Medical History / Comment(s): rt upper lung changes on CT scan- "non small cell carcinoma" ,chronic low back pain and sciatic pain, HERNIA'S, "Fatty liver", Hx of "Fatty mass" to rt lung-removed. Abdominal Aortic Aneurysm History of Any Multi-Drug Resistant Organisms: None Reported Past Surgical History: Orthopedic Surgery Additional Past Surgical History / Comment(s): COLONOSCOPY x2,vasectomy, rt chest mass removed,left hand carpel tunnel Past Anesthesia/Blood Transfusion Reactions: No Reported Reaction Additional Past Anesthesia/Blood Transfusion Reaction / Comment(s): no hx blood transfusion to date. Smoking Status: Former smoker - Past Family History Mother Family Medical History: No Reported History Medications and Allergies Home Medications Medication Instructions Recorded Confirmed Type Aspirin 81 mg PO QAM 03/18/15 02/14/24 History Atorvastatin [Lipitor] 80 mg PO DIRECTED 03/18/15 02/14/24 History Ezetimibe [Zetia] 10 mg PO QAM 03/18/15 02/14/24 History amLODIPine BES/OLMESARTAN MED 1 tab PO QAM 03/18/15 02/14/24 History [Tania 10-40 mg Tablet] Ibuprofen 800 mg PO DAILY PRN 11/10/22 02/07/24 History Multivitamins, Thera [Multivitamin 1 tab PO QAM 01/03/24 02/07/24 History (formulary)] Allergies Allergy/AdvReac Type Severity Reaction Status Date / Time No Known Allergies Allergy Verified 02/07/24 15:14 Physical Exam Osteopathic Statement: *. No significant issues noted on an osteopathic structural exam other than those noted in the History and Physical/Consult. Vitals: Vital Signs Temp Pulse Pulse Pulse Resp BP Pulse Ox 02/14/24 15:53 104 H 02/14/24 15:38 102 H 93 L 02/14/24 14:00 94 16 113/62 95 02/14/24 13:30 93 15 111/62 94 L 02/14/24 13:00 89 16 98/55 94 L 02/14/24 12:45 88 16 107/55 95 02/14/24 12:30 87 15 107/55 93 L 02/14/24 12:15 86 17 107/55 92 L 02/14/24 12:00 82 17 103/51 93 L 02/14/24 11:40 86 17 103/51 94 L 02/14/24 11:25 81 19 102/51 93 L 02/14/24 11:10 81 30 H 100/56 95 02/14/24 10:55 85 15 104/57 97 02/14/24 10:39 96.8 F L 94 16 116/60 97 02/14/24 07:16 79 17 116/69 95 02/14/24 06:40 98.5 F 88 18 140/80 95 Intake and Output 02/14/24 02/14/24 02/14/24 06:59 14:59 22:59 Intake Total 100 2200 Output Total 80 Balance 100 2120 Intake: IV 100 2200 Output: Urine 55 Estimated Blood Loss 25 Other: Weight 116.9 kg No acute distress, oriented 3. Currently on 3 L of oxygen. HEENT examination is grossly unremarkable. Mucous membranes are moist. No oral lesions. Neck supple. Full range of motion. No adenopathy thyromegaly or neck vein distention. Cardiovascular examination reveals regular rhythm rate. S1-S2 normal. No S3 or S4. No discernible murmur noted. Lungs reveal diminished breath sounds on the right. Breath sounds on the left are clear. No adventitious lung sounds noted. There is a right sided chest tube in place. Abdomen soft bowel sounds are heard. No masses or tenderness. Extremities are intact. No cyanosis clubbing or edema. Skin is without rash or lesion. Neurologic examination is brief but nonfocal. Results - Laboratory Findings PT/INR, D-dimer PT 11.0 sec (10.0-12.5) 02/14/24 06:48 INR 1.0 (<1.2) 02/14/24 06:48 - Diagnostic Findings Chest x-ray: image reviewed Assessment and Plan Assessment: Postoperative day #0, status post robotically right upper lobectomy, and mediastinal lymph node dissection, for a FDG avid lesion in the right upper lobe, and a previous robotic bronchoscopy, suggesting atypical cells consistent with non-small cell lung cancer. Previous history of tobacco use for many years, quit 9 years ago. History of hypertension. History of hyperlipidemia. Plan: Plan dated February 14, 2024. The patient is seen today in room 379. He is on 3 L of oxygen. His and daughter are in the room with him. The patient is clinically very stable. He is getting an IV of D5 half-normal saline at 40 cc an hour. The patient is postop day #0, status post robotically assisted right upper lobectomy, mediastinal lymph node dissection, for a suspicious lesion in the right upper lobe, which was FDG avid on PET scan. Robotic bronchoscopy revealed abnormal/atypical cells consistent with non-small cell lung cancer. We will continue to follow make recommendations along the way. We do recommend that the patient use the incentive spirometer, every hour while awake, and recommend deep breathing, coughing, clearing of secretions. Time with Patient: Greater than 30
[2024-02-14] MEDS: KETOROLAC 15 MG/ML 1 ML VIAL IVP SCH (17:27)
[2024-02-14] MEDS: HEPARIN SODIUM,PORCINE 5,000 UNIT/ML 1 ML VIAL SQ SCH (17:27)
[2024-02-14] MEDS: FORMOTEROL FUMARATE 20 MCG/2 ML NEBU INHALATION SCH (19:34)
[2024-02-15 06:56] LABS: Basophils % (A) 0 %; Eosinophils % (A) 0 %; HCT 42.6 % (39.0-53.0); HGB 13.9 gm/dL (13.0-17.5); Lymphocytes # (A) 1.3 k/uL (1.0-4.8); Lymphocytes % (A) 13 %; MCH 24.9 pg (25.0-35.0); MCHC 32.5 g/dL (31.0-37.0); MCV 76.5 fL (80.0-100.0); Mean Platelet Volume 7.5; Microcytosis Slight; Monocytes # (A) 0.7 k/uL (0-1.0); Monocytes % (A) 7 %; Neutrophils # (A) 7.9 k/uL (1.3-7.7); Neutrophils % (A) 79 %; Platelet Count 171 k/uL (150-450); RBC 5.57 m/uL (4.30-5.90); RDW 14.4 % (11.5-15.5)
[2024-02-15 07:12] LABS: African American GFR (CKD) >90 (>60 ml/min/1.73 sqM); Anion Gap 11 mmol/L; Blood Urea Nitrogen 15 mg/dL (9-20); Calcium 9.2 mg/dL (8.4-10.2); Carbon Dioxide 22 mmol/L (22-30); Chloride 106 mmol/L (98-107); Glucose 146 mg/dL (74-99); Non-African American GFR(CKD) 79 (>60 ml/min/1.73 sqM); Potassium 4.2 mmol/L (3.5-5.1); Sodium 139 mmol/L (137-145)
[2024-02-15] MEDS: EZETIMIBE 10 MG TAB PO SCH (08:01)
[2024-02-15] MEDS: MULTIVITAMINS, THERA 1 EACH TAB PO SCH (08:01)
[2024-02-15] MEDS: ASPIRIN 81 MG PO SCH (08:01)
[2024-02-15] MEDS: ATORVASTATIN 80 MG TAB PO SCH (08:01)
[2024-02-15] MEDS: amLODIPine 10 MG TAB PO SCH (08:01)
--- NOTE | 2024-02-15 08:34 | P.PN ---
Subjective Progress Note Date: 02/15/24 Principal diagnosis: Right upper lobe mass consistent with lung cancer. Past medical history significant for right upper lobe nodule of the lung, followed by serial CT scans of the chest, hypertension, hyperlipidemia, carpal tunnel syndrome, macular degeneration, abdominal aortic aneurysm, degenerative disc disease, vitamin D deficiency, and remote history of nicotine dependence, quit smoking in 2014. POD #1 Robotic assisted thoracoscopic right upper lobectomy with mediastinal lymph node dissection. The patient was seen and examined in follow-up today February 15, 2024 at his bedside on the third floor cardiac stepdown unit. The patient is currently sitting up to the bedside chair, is awake, alert, oriented x 3 and is in no acute apparent distress. He denies any complaints of shortness of breath at this time, and states his pain is well-controlled on the current pain medication regimen and currently reports his pain 1-2 out of 10 on the pain scale. Oxygen saturations are 94% on 3 L nasal cannula and he is achieving 1800 mL on his incentive spirometry with encouragement. Remote telemetry is showing normal sinus rhythm heart rate 79 bpm. Right pleural chest tube remains in place connected to low continuous wall suction -20 cm H2O. No airleak is present. Draining thin serosanguineous drainage with 20 mL output in the last 8 hours and 210 mL output since surgery. The patient reports he has been up ambulating in his room and tolerating well. Laboratory and chest x-ray results reviewed. Surgical pathology results remain pending. Objective - Vital Signs Vital signs: Vital Signs Temp 98.9 F 02/14/24 20:30 Pulse 89 02/15/24 04:00 Resp 20 02/15/24 04:00 BP 123/69 02/15/24 04:00 Pulse Ox 93 L 02/15/24 04:00 FiO2 Intake & Output 02/14/24 02/15/24 02/15/24 18:59 06:59 18:59 Intake Total 2380 Output Total 555 2701 Balance 1825 -2701 Weight 116.9 kg 118.4 kg Intake: IV 2200 Oral 180 Output: Chest Tube Drainage 75 101 Right Lateral Chest 75 101 Urine 455 2600 Estimated Blood Loss 25 Other: Voiding Method Indwelling Catheter Indwelling Catheter # Bowel Movements 0 - Exam CONSTITUTIONAL: Appears comfortable, cooperative, no acute distress RESPIRATORY: Lungs sounds diminished bilaterally. Respirations symmetrical, nonlabored. Currently on 3 L nasal cannula with oxygen saturation 94%. Able to achieve 1800 mL on his incentive spirometry. Strong cough. CARDIOVASCULAR: S1, S2 present. Regular rate and rhythm, sinus rhythm on t elemetry, heart rate 79 bpm. Palpable peripheral pulses bilaterally. No edema present. No calf pain or tenderness noted. SCDs present. GASTROINTESTINAL: Abdomen soft, nontender, nondistended. Active bowel sounds present 4 quadrants. Tolerating diet. GENITOURINARY: Mejía catheter in place, clear yellow urine output with urine output 2.6 L in the last 12 hours. INTEGUMENTARY: Skin is warm and dry with no clubbing or cyanosis present. Right chest thoracic incisions well approximated and covered with dry intact dressing. NEUROLOGIC: Cranial nerves II through XII intact. MUSKULOSKELETAL: Able to move all extremities, strength equal bilaterally, gait normal. PSYCHIATRIC: Alert and oriented to person place and time, appropriate affect, intact judgment and insight. INVASIVE LINES AND TUBES: Right pleural chest tube present and connected to low continuous wall suction, no air leak present. Right pleural chest tube with 20 mL thin serosanguineous drainage overnight, 210 mL in the last 24 hours. - Allied health notes Allied health notes reviewed: nursing - Labs CBC & Chem 7: 02/15/24 06:35 02/15/24 06:35 Labs: Abnormal Lab Results - Last 24 Hours (Table) 02/15/24 02/15/24 Range/Units 06:35 06:35 MCV 76.5 L (80.0-100.0) fL MCH 24.9 L (25.0-35.0) pg Neutrophils # 7.9 H (1.3-7.7) k/uL Glucose 146 H (74-99) mg/dL - Imaging and Cardiology Chest x-ray: report reviewed, image reviewed Assessment and Plan Assessment: Right upper lobe mass consistent with lung cancer, status post robotic assisted thoracoscopic right upper lobectomy with mediastinal lymph node dissection History of hypertension Hyperlipidemia Macular degeneration Carpal tunnel syndrome Abdominal aortic aneurysm Degenerative disc disease Vitamin D deficiency Remote history of nicotine dependence, quit smoking in 2014 Plan: Right pleural chest tube placed to waterseal and removed from low continuous wall suction. No air leak is present. We will obtain a repeat chest x-ray at 10 AM today, if there is no pneumothorax we will remove the chest tube. Lasix 20 mg IV x 1 now, potassium chloride ER 10 mEq p.o. x 1 now. Discontinue IV fluids. Remove Mejía catheter. May bladder scan every 6 hours and as needed postvoid residuals, if greater than 300 mL of urine may straight cath. Encourage use of incentive spirometry 10 times every hour while awake. Monitor daily chest x-rays. Increase activity as tolerated. Encourage ambulation in the hallway. Out of bed for all meals. Wean oxygen as tolerated. Bronchodilator management per pulmonary/critical care medicine recommendations. Pain control per current as needed orders. GI and DVT prophylaxis. More recommendations to follow based on patient's clinical course. Time with Patient: Greater than 30
[2024-02-15] MEDS: METOPROLOL TARTRATE 12.5 MG TAB PO SCH (09:04)
[2024-02-15] MEDS: FUROSEMIDE 10 MG/ML 2 ML VIAL IV STA (09:04)
[2024-02-15] MEDS: POTASSIUM CHLORIDE ER 10 MEQ TAB.ER.PRT PO STA (09:04)
[2024-02-15] MEDS: PANTOPRAZOLE 40 MG TABLET PO SCH (09:04)
--- NOTE | 2024-02-15 10:27 | XR ---
EXAMINATION TYPE: XR chest 1V portable DATE OF EXAM: 02/15/2024 COMPARISON: 02/15/2024 CLINICAL INDICATION: Male, 73 years old with history of Chest tube to waterseal evaluate for pneumoth orax; TECHNIQUE: Single frontal view of the chest is obtained. FINDING: There is a right sided chest tube unchanged in position. There is no pneumothorax. There is persistent moderate elevation right hemidiaphragm. Pulmonary vasculature appears mildly congested, unchanged compared to prior study. There is stable mo derate cardiomegaly. There is no airspace consolidation. There is no large pleural effusion. IMPRESSION: 1. No change in the right chest tube. There is no pneumothorax. 2. Moderate cardiomegaly and mild pulmonary vascular congestion. 3. No significant interval change. [facility], Workstation: [email or web address] 02/15/2024 10:25 AM
--- NOTE | 2024-02-15 13:21 | XR ---
EXAMINATION TYPE: XR chest 1V portable DATE OF EXAM: 02/15/2024 7:03 AM COMPARISON: 02/15/2024 CLINICAL INDICATION: Male, 73 years old with history of s/p right upper lobectomy, TECHNIQUE: XR chest 1V portable view(s) obtained. FINDINGS: The heart size is enlarged. The pulmonary vasculature is normal. There is elevation of the right diaphragm. Right-sided chest tube is present. Minimal right apical pn eumothorax being be present. IMPRESSION: 1. Very minimal right apical pneumothorax remaining present. 2. Chronic elevation right diaphragm. 3. Cardiomegaly [facility], , 02/15/2024 1:19 PM
--- NOTE | 2024-02-15 14:59 | P.PN ---
Subjective Progress Note Date: 02/15/24 Principal diagnosis: Status post right upper lobectomy. Pulmonary consult dated February 14, 2024. 73-year-old male with a history of hypertension, hyperlipidemia, previous heavy tobacco use, who is postop day #0, status post robotically assisted right upper lobectomy and mediastinal lymph node dissection. The surgery was done by Dr. Thompson. The patient was evaluated by my partner, and apparently had robotic bronchoscopy. Apparently the pathology on that procedure, suggested atypical cells, consistent with non-small cell lung cancer. The initial procedure by my partner was done on January 04, 2024. Atypical cells, were suspicious for non- small cell carcinoma. The patient is seen today in room 379. He is currently on 3 L of oxygen. He is getting D5 with half-normal saline at 40 cc an hour. He did smoke for 45 years. He quit 9 years ago. No laboratory data as yet on the chart. There is a PT of 11, and INR of 1, and a PTT of 22.6. Chest x-ray shows a right sided chest tube, without pneumothorax. Progress note dated February 15, 2024. 73-year-old male with a history of hypertension, hyperlipidemia, previous heavy tobacco use. The patient is postoperative day #1, status post robotically assisted right upper lobectomy, with mediastinal lymph node dissection. The surgery was done by Dr. Thompson. Currently, the patient is on 2 L. He seen today in room 379. His chest tube has been removed. He does have a residual right sided pneumothorax. Currently white count 10, hemoglobin 13.9, macro 42.6, and a platelet count of 171,000. Sodium 139, potassium 4.2, chlorides 106, CO2 22, BUN 15, creatinine 0.97. Glucose is 146. Objective - Vital Signs Vital signs: Vital Signs Temp 97.9 F 02/15/24 08:00 Pulse 73 02/15/24 13:15 Resp 18 02/15/24 12:00 BP 113/66 02/15/24 12:00 Pulse Ox 92 L 02/15/24 12:23 FiO2 Intake & Output 02/14/24 02/15/24 02/15/24 18:59 06:59 18:59 Intake Total 4080 138 Output Total 300 5890 545 Balance 8641 -3612 -035 Weight 116.9 kg 118.4 kg Intake: IV 2200 Oral 180 480 Output: Chest Tube Drainage 75 101 8 Right Lateral Chest 75 101 8 Urine 455 2600 390 Uretheral (Mejía) 100 Post Void Residual 290 Estimated Blood Loss 25 Other: Voiding Method Indwelling Catheter Indwelling Catheter Indwelling Catheter # Voids 1 # Bowel Movements 0 - Exam No acute distress, oriented 3. Currently on 2 L of oxygen. HEENT examination is grossly unremarkable. Mucous membranes are moist. No oral lesions. Neck supple. Full range of motion. No adenopathy thyromegaly or neck vein distention. Cardiovascular examination reveals regular rhythm rate. S1-S2 normal. No S3 or S4. No discernible murmur noted. Lungs reveal diminished breath sounds on the right. Breath sounds on the left are clear. No adventitious lung sounds noted. Abdomen soft bowel sounds are heard. No masses or tenderness. Extremities are intact. No cyanosis clubbing or edema. Skin is without rash or lesion. Neurologic examination is brief but nonfocal. - Labs CBC & Chem 7: 02/15/24 06:35 02/15/24 06:35 Labs: Abnormal Lab Results - Last 24 Hours (Table) 02/15/24 02/15/24 Range/Units 06:35 06:35 MCV 76.5 L (80.0-100.0) fL MCH 24.9 L (25.0-35.0) pg Neutrophils # 7.9 H (1.3-7.7) k/uL Glucose 146 H (74-99) mg/dL Assessment and Plan Assessment: Postoperative day #1, status post robotically right upper lobectomy, and mediastinal lymph node dissection, for a FDG avid lesion in the right upper lobe, and a previous robotic bronchoscopy, suggesting atypical cells consistent with non-small cell lung cancer. Previous history of tobacco use for many years, quit 9 years ago. History of hypertension. History of hyperlipidemia. Plan: Plan dated February 14, 2024. The patient is seen today in room 379. He is on 3 L of oxygen. His and daughter are in the room with him. The patient is clinically very stable. He is getting an IV of D5 half-normal saline at 40 cc an hour. The patient is postop day #0, status post robotically assisted right upper lobectomy, mediastinal lymph node dissection, for a suspicious lesion in the right upper lobe, which was FDG avid on PET scan. Robotic bronchoscopy revealed abnormal /atypical cells consistent with non-small cell lung cancer. We will continue to follow make recommendations along the way. We do recommend that the patient use the incentive spirometer, every hour while awake, and recommend deep breathing, coughing, clearing of secretions. Plan dated February 15, 2024. The patient is seen today in room 379. The patient is postoperative day #1, status post robotically assisted right upper lobectomy and mediastinal lymph node dissection. The patient had a previous robotic bronchoscopy, with suggested atypical cells, consistent with a non-small cell lung cancer. The patient's chest tube was removed. He will need to go home on oxygen. He has a residual right sided pneumothorax apically. Labs, x-rays, medications are reviewed. We will continue to follow the patient. No additional recommendations. He will need follow-up with my partner. Time with Patient: Less than 30
--- NOTE | 2024-02-15 15:26 | XR ---
EXAMINATION TYPE: XR chest 1V portable DATE OF EXAM: 02/15/2024 2:12 PM COMPARISON: 02/15/2028 CLINICAL INDICATION: Male, 73 years old with history of Post chest tube removal, TECHNIQUE: XR chest 1V portable view(s) obtained. FINDINGS: The heart size is normal. The pulmonary vasculature is normal. The lungs are clear. There is a small to moderate size right apical pneumothorax, new from chest tube removal. IMPRESSION: 1. Development of small to moderate right apical pneumothorax post chest tube. A Red level critical message alert has been initiated for Idris Yates via the [employer] on 02/15/2024 3:22 PM. This message alert has been sent to Idris Yates via the preferences provided by the clinician for the receipt of Radiology Critical Findings. Message ID [id number]. [facility], , 02/15/2024 3:24 PM
--- NOTE | 2024-02-16 07:44 | XR ---
EXAMINATION TYPE: XR chest 2V DATE OF EXAM: 02/16/2024 6:44 AM COMPARISON: None. CLINICAL INDICATION: Male, 73 years old with history of Postop right upper lobectomy, TECHNIQUE: Frontal and lateral views of the chest are obtained. FINDINGS: Persistent small to moderate-sized right apical pneumothorax. Persistent bibasilar increas ed opacities. Persistent right-sided mediastinal shift. More prominent overlying right sided subcutan eous emphysema. Persistent mild cardiomegaly. The osseous structures are intact. IMPRESSION: Stable small to moderate size right apical pneumothorax. Persistent bibasilar acute infil trates and/or atelectasis. Persistent cardiomegaly and right-sided volume loss. New right-sided overl clement subcutaneous emphysema noted. [facility], , 02/16/2024 7:41 AM
--- NOTE | 2024-02-16 08:13 | P.PN ---
Subjective Progress Note Date: 02/16/24 Principal diagnosis: Right upper lobe mass consistent with lung cancer. Past medical history significant for right upper lobe nodule of the lung, followed by serial CT scans of the chest, hypertension, hyperlipidemia, carpal tunnel syndrome, macular degeneration, abdominal aortic aneurysm, degenerative disc disease, vitamin D deficiency, and remote history of nicotine dependence, quit smoking in 2015. POD #2 Robotic assisted thoracoscopic right upper lobectomy with mediastinal lymph node dissection. Right pneumothorax status post chest tube removal, unexpected The patient was seen and examined in follow-up today February 16, 2024 at his bedside on the third floor cardiac stepdown unit. He is currently sitting up to the bedside chair, is awake, alert, oriented x 3 and is in no acute apparent distress. Denies any complaints of shortness of breath or pain at this time, although he is complaining of some nasal congestion and some postnasal drip. Oxygen saturations are 96% on room air and he is achieving 2500 mL on his incentive spirometry with encouragement. Chest x-ray results reviewed which continues to show a small to moderate-sized right apical pneumothorax with some new right-sided overlying subcutaneous emphysema. The patient reports he has been up ambulating in the cardiac stepdown and hallway independently and tolerating well without complaints. Remote telemetry is showing normal sinus rhythm heart rate 77 bpm. The patient remains hemodynamically stable and is currently on no inotropic or pressor support. The patient's right pleural chest tube was removed yesterday without incident, follow-up chest x-ray did show a small to moderate-sized right apical pneumothorax. Objective - Vital Signs Vital signs: Vital Signs Temp 97.9 F 02/16/24 03:44 Pulse 78 02/16/24 03:44 Resp 17 02/16/24 03:44 BP 121/66 02/16/24 03:44 Pulse Ox 95 02/16/24 03:44 FiO2 Intake & Output 02/15/24 02/16/24 02/16/24 18:59 06:59 18:59 Intake Total 720 Output Total 898 200 Balance -178 -200 Weight 119.1 kg Intake: Oral 720 Output: Chest Tube Drainage 8 Right Lateral Chest 8 Urine 600 200 Uretheral (Mejía) 100 Post Void Residual 290 Other: Voiding Method Indwelling Catheter Toilet Urinal # Voids 1 - Exam CONSTITUTIONAL: Appears comfortable, cooperative, no acute distress RESPIRATORY: Lungs sounds essentially clear throughout, diminished to his right upper lobe. Respirations symmetrical, nonlabored. Currently on room air with oxygen saturation 96%. Able to achieve 2500 mL on his incentive spirometry. Strong cough. CARDIOVASCULAR: S1, S2 present. Regular rate and rhythm, sinus rhythm on telemetry, heart rate 77 bpm. Palpable peripheral pulses bilaterally. No edema present. No calf pain or tenderness noted. SCDs present. GASTROINTESTINAL: Abdomen soft, nontender, nondistended. Active bowel sounds present 4 quadrants. Tolerating diet. Passing flatus. GENITOURINARY: Continues to void. INTEGUMENTARY: Skin is warm and dry with no clubbing or cyanosis present. Right chest thoracic incisions well approximated and covered with dry intact dressing. NEUROLOGIC: Cranial nerves II through XII intact. No focal deficits. MUSKULOSKELETAL: Able to move all extremities, strength equal bilaterally, gait normal. PSYCHIATRIC: Alert and oriented to person place and time, appropriate affect, intact judgment and insight. - Allied health notes Allied health notes reviewed: nursing - Labs CBC & Chem 7: 02/15/24 06:35 02/15/24 06:35 - Imaging and Cardiology Chest x-ray: report reviewed, image reviewed Assessment and Plan Assessment: Right upper lobe mass consistent with lung cancer, status post robotic assisted thoracoscopic right upper lobectomy with mediastinal lymph node dissection Right apical pneumothorax status post chest tube removal, unexpected History of hypertension Hyperlipidemia Macular degeneration Carpal tunnel syndrome Abdominal aortic aneurysm Degenerative disc disease Vitamin D deficiency Remote history of nicotine dependence, quit smoking in 2014 Plan: Continue to encourage use of incentive spirometry 10 times every hour while awake. Continue bronchodilators, managed by pulmonary/critical care medicine. Monitor daily chest x-rays. Continue to monitor for resolution of right apical pneumothorax. Increase activity as tolerated. Encourage ambulation in the hallway. Out of bed for all meals. Increase metoprolol to tartrate to 25 mg p.o. twice daily Pain control per current as needed orders. Ultram discontinued. GI and DVT prophylaxis. More recommendations to follow based on patient's clinical course. Time with Patient: Greater than 30
[2024-02-16] MEDS: SENNOSIDES-DOCUSATE SODIUM 1 EACH TAB PO SCH (08:24)
[2024-02-16] MEDS: METOPROLOL TARTRATE 25 MG TAB PO SCH (08:24)
[2024-02-16] MEDS ORDERED: LOSARTAN 50 MG TAB PO SCH ×2 (09:00)
[2024-02-16 09:39] VITALS: BP 132/71; RESP 18; TEMP 97.6
[2024-02-16 09:42] VITALS: PULSE 76
--- NOTE | 2024-02-16 10:22 | P.DS ---
Providers Date of admission: 02/14/24 05:35 Expected date of discharge: 02/16/24 Attending physician: Mariano Thompson Consults: 02/14/24 10:52 Consult Physician Routine Consulting Provider: Idris Yates Reason/Comments: Postop right upper lobectomy Do you want consulting provider notified?: Yes Primary care physician: [facility] Course: FINAL DIAGNOSIS: Right upper lobe mass consistent with lung cancer, status post robotic assisted thoracoscopic right upper lobectomy with mediastinal lymph node dissection Samll right pneumothorax status post chest tube removal, unexpected History of hypertension Hyperlipidemia Macular degeneration Carpal tunnel syndrome Abdominal aortic aneurysm Degenerative disc disease Vitamin D deficiency Remote history of nicotine dependence, quit smoking in 2014 PRINCIPAL PROCEDURE: 1. Robotic assisted thoracoscopic right upper lobectomy with mediastinal lymph node dissection HISTORY OF PRESENT ILLNESS: This is a 73-year-old gentleman who follows on an outpatient basis with Dr. Jr Craven for his primary care and with Dr. Medeiros for his pulmonary care. The patient has a history of nicotine dependence and quit smoking in 2014. He has a history of undergoing serial low- dose CAT scans of the chest with an initial CAT scan done in August 2021. In August 2021 there was no concerning pulmonary nodules. A repeat low-dose CT scan of the chest was completed in August 2022 which showed a right upper lung irregular shaped consolidation compared to August 2021. Due to the finding on the CT scan in August 2022 he was recommended to undergo a PET scan which was completed in October 2022. The PET CT scan showed a right upper lobe consolidation/masslike lesion that showed mild FDG uptake, the area had a maximum SUV of 3.8 and no evidence of metastasis. A follow-up CT scan of the chest showed increase in size of the right upper lobe mass to 2.5 cm maximal diameter from 1.2 cm maximal diameter. On January 03, 2024 the patient underwent a robotic assisted bronchoscopy, with robotic assisted transbronchial needle aspirate, transbronchial biopsy of the right upper lobe opacity. The biopsy was positive for adenocarcinoma. Subsequently, due to the findings on the biopsy results a consult was placed to Dr. Mariano Thompson from cardiothoracic surgery for further evaluation and treatment recommendations. The patient met with Dr. Thompson, Dr. Thompson discussed the findings on the above mentioned studies, treatment options were discussed including robotic assisted thoracoscopic right upper lobectomy with mediastinal lymph node dissection. Risks and benefits of surgery were discussed with the patient and knowing and understanding the risks the patient wished to proceed with the surgical option. HOSPITAL COURSE: The patient was brought to the hospital on February 14, 2024, taken to the preoperative area, prepared in the usual fashion, and subsequently taken to the operating room where Dr. Thompson performed a robotic assisted thoracoscopic right upper lobectomy with mediastinal lymph node dissection. Upon completion of surgery the patient was extubated and taken to the recovery room where he was initially recovered and monitored hemodynamically. He was eventually admitted to 3 S. cardiac stepdown unit. His right pleural chest tube was placed to waterseal, no air leak was present, and follow-up chest x-ray showed no evidence of pneumothorax and his right pleural chest tube was subsequently discontinued. A follow-up chest x-ray post chest tube removal showed a small right apical pneumothorax, and the patient was kept for another 24 hours for continued monitoring. The x-ray on postoperative day #2 continued to show a stable small right apical pneumothorax. He continues to use oxygen 2 L nasal cannula and will be discharged with home oxygen, he was tolerating oral diet, his pain was controlled, and he was ready to be discharged to home on postoperative day #2. He has received written and verbal instructions regarding his medications, activity restrictions, signs and symptoms requiring physician notification, and follow-up appointments. Plan - Discharge Summary Discharge Rx Participant: No New Discharge Prescriptions: New Acetaminophen Tab [Tylenol] 1,000 mg PO Q6HR PRN tab PRN Reason: Mild To Moderate Pain (1 - 6) Metoprolol Tartrate [Lopressor] 25 mg PO BID #60 tab Continue Ezetimibe [Zetia] 10 mg PO QAM Aspirin 81 mg PO QAM amLODIPine BES/OLMESARTAN MED [Tania 10-40 mg Tablet] 1 tab PO QAM Atorvastatin [Lipitor] 80 mg PO DIRECTED Ibuprofen 800 mg PO DAILY PRN PRN Reason: Pain Multivitamins, Thera [Multivitamin (formulary)] 1 tab PO QAM Discharge Medication List Aspirin 81 mg PO QAM 03/18/15 [History] Atorvastatin [Lipitor] 80 mg PO DIRECTED 03/18/15 [History] Ezetimibe [Zetia] 10 mg PO QAM 03/18/15 [History] amLODIPine BES/OLMESARTAN MED [Tania 10-40 mg Tablet] 1 tab PO QAM 03/18/15 [History] Ibuprofen 800 mg PO DAILY PRN 11/10/22 [History] Multivitamins, Thera [Multivitamin (formulary)] 1 tab PO QAM 01/03/24 [History] Acetaminophen Tab [Tylenol] 1,000 mg PO Q6HR PRN tab 02/15/24 [Rx] Metoprolol Tartrate [Lopressor] 25 mg PO BID #60 tab 02/16/24 [Rx] Follow up Appointment(s)/Referral(s): Mariano Thompson MD [STAFF PHYSICIAN] - 02/21/24 2:00 pm Jr Parmar DO [Primary Care Provider] - As Needed Manfred Medeiros MD [STAFF PHYSICIAN] - 03/07/24 9:30 am Ambulatory/Diagnostic Orders: XR chest 2V [RAD.AMB] Time Frame: 02/21/24, Facility: [facility], Location: [facility] Activity/Diet/Wound Care/Special Instructions: DISCHARGE INSTRUCTIONS: 1. No driving for 2 weeks, or until physician gives their ok. 2. No lifting, pushing, or pulling more than 10 pounds for 2 weeks. The physician will advise of any restriction changes. 3. Continue pain control per as needed orders. Alternate acetaminophen (Tylenol) and ibuprofen (Motrin/Advil) for pain. 4. Continue with incentive spirometry and splinting until otherwise directed by the physician. 5. Leave chest tube dressing for 48 hours. After that, remove all dressings and shower daily. 6. Routine incision care. No powders, lotions, ointments on incisions. 7. Please call surgeon/[employer]IST for temp greater than 101 F or purulent drainage from incisions. Lito Keller [phone] 8. Smoking cessation counseling and program information provided. 9. Obtain a two-view chest x-ray prior to your follow-up visit with Dr. Thompson on February 21, 2024 at 2 PM. Quitting smoking is the most important step you can take to improve your health. For additional information and assistance to quit smoking, please call the [place] tobacco quit line (6-594-XVUK-NOW/ ) or online: https://www.[place].gov/mdhhs/odda-fp-zrwmwot/chronic diseases/tobacco/ypr-xa-acjf-tobacco Discharge Disposition: HOME SELF-CARE
--- NOTE | 2024-02-16 14:26 | PN ---
PROGRESS NOTE DATE OF SERVICE: 02/16/2024 SUBJECTIVE: A 73-year-old male with history of hypertension, hyperlipidemia, previous heavy tobacco use. The patient is postoperative day #2, status post robotically-assisted right upper lobectomy with mediastinal lymph node dissection. The patient's chest tube has been removed. He does have a small to moderate right-sided pneumothorax. Currently, he is on 2 L of oxygen. He will be discharged home on oxygen. The patient is not receiving any IV fluids. He is currently very stable and is anxious to get home. PHYSICAL EXAMINATION: VITAL SIGNS: Current vital signs include a temperature 97.6, heart rate 76, respiratory rate 18, blood pressure which is in the normal range, and 2 L saturation 97%. GENERAL: He appears in no acute distress. HEENT: Examination is grossly unremarkable. NECK: Supple. Full range of motion. No adenopathy. Neck veins are flat. CARDIOVASCULAR: Reveals regular rhythm and rate. Heart rate 76 beats per minute. S1 and S2 normal. LUNGS: Reveal relatively clear breath sounds. Slightly diminished breath sounds on the right. There is some mild subcutaneous emphysema in the right chest area. ABDOMEN: Soft. Bowel sounds are heard. EXTREMITIES: Intact. No cyanosis, clubbing, or edema. SKIN: Without rash. NEUROLOGIC: Brief but nonfocal. LABORATORY DATA: No new labs today. IMAGING: Chest x-ray was reviewed. ASSESSMENT: 1. Postoperative day #2, status post robotically-assisted right upper lobectomy and mediastinal lymph node dissection for an FDG avid lesion in the right upper lobe and a previous robotic bronchoscopy suggesting atypical cells consistent with non- small cell lung cancer. 2. Previous history of tobacco use for many years, quit 9 years ago. 3. History of hypertension. 4. History of hyperlipidemia. PLAN: The patient is doing well. He likely will be discharged by Cardiothoracic Surgery. He will follow up with Dr. Thompson on . He will be discharged on oxygen therapy at 2 L. No additional recommendations are made. I did advise the patient to come back to the emergency room if he developed worsening shortness of breath or right-sided chest pain. MMODL / IJN: [id number] /
--- NOTE | 2024-02-20 10:25 | CDI ---
Documentation Clarification Form Date: 02/20/2024 09:44:59 AM From: May Mendoza RN, CCDS Email: [email or web address] Admit Date: 02/14/2024 05:35:00 AM Patient Name: Emile Youngblood Visit Number: [id number] Discharge Date: 02/16/2024 11:40:00 AM ATTENTION: The Clinical Documentation Specialists (CDI) and [facility] Coding Staff appreciate your assistance in clarifying documentation. Please respond to the clarification below the line at the bottom and electronically sign. The CDI & [facility] Coding staff will review the response and follow-up if needed. Please note: Queries are made part of the Legal Health Record. If you have any questions, please contact the author of this message via ITS. Yair Keller MARKET MASTER-C: The patient had low oxygen saturations and required supplemental O2 along with home oxygen at discharge. Based on this information and the findings below, is there an additional diagnosis that is clinically appropriate for this patient? Patient history/risk factors: RUL mass consistent with lung cancer, former smoker and HTN. S/P Robotic assisted thoracoscopic right upper lobectomy with mediastinal lymph node dissection on 02/13. Clinical Indicators: 02/14 Home O2 assessment: Pulse ox on O2 2LNC with exercise: 92% Pulse ox on room air with exercise: 85% Pulse ox on room air at rest: 92% 02/14 Discharge summary: "A follow-up chest x-ray post chest tube removal showed a small right apical pneumothorax, and the patient was kept for another 24 hours for continued monitoring. He continues to use oxygen 2 L nasal cannula and will be discharged with home oxygen." 02/14 PN: "He will need to go home on oxygen." 02/15 PN: "He will be discharged home on oxygen." Treatment: supplemental O2, IS; discharge with home O2; A/A QID 02/13-02/15 Is there an additional diagnosis that is clinically appropriate for this patient? [ ] Acute pulmonary insufficiency following lobectomy [ ] No additional diagnosis/Not clinically significant [ ] Unable to determine [ ] Other, please specify MTDD
--- NOTE | 2024-02-20 10:27 | CDI ---
Documentation Clarification Form Date: 02/20/2024 10:19:24 AM From: May Mendoza RN, CCDS Email: [email or web address] Admit Date: 02/14/2024 05:35:00 AM Patient Name: Emile Youngblood Visit Number: [id number] Discharge Date: 02/16/2024 11:40:00 AM ATTENTION: The Clinical Documentation Specialists (CDI) and [facility] Coding Staff appreciate your assistance in clarifying documentation. Please respond to the clarification below the line at the bottom and electronically sign. The CDI & [facility] Coding staff will review the response and follow-up if needed. Please note: Queries are made part of the Legal Health Record. If you have any questions, please contact the author of this message via ITS. Yair BISHOP The patient had moderate cardiomegaly and mild pulmonary vascular congestion. Based on this information and the findings below, is there an additional diagnosis that is clinically appropriate for this patient? Patient history/risk factors: RUL mass consistent with lung cancer, former smoker and HTN. S/P Robotic assisted thoracoscopic right upper lobectomy with mediastinal lymph node dissection on 02/13. Clinical Indicators: 02/14 CXR: Moderate cardiomegaly and mild pulmonary vascular congestion 02/15 CXR: Stable small to moderate size right apical pneumothorax. Persistent bibasilar acute infiltrates and/or atelectasis. Persistent cardiomegaly and right-sided volume loss. New right-sided overlying subcutaneous emphysema noted. 02/14 PN: "No air leak is present. We will obtain a repeat chest x-ray at 10 AM today, if there is no pneumothorax we will remove the chest tube. Lasix 20 mg IV x 1 now, potassium chloride ER 10 mEq p.o. x 1 now. Discontinue IV fluids." Treatment: Discontinue IV fluids; IV Lasix 20mg x1 on 02/14; supplemental O2; IS; A/A QID 02/13-02/15 Is there an additional diagnosis that is clinically appropriate for this patient? [ ] Mild Acute Pulmonary Edema [ ] No additional diagnosis/Not clinically significant [ ] Unable to determine [ ] Other, please specify MTDD
== END 2024-02-16 11:40 | disposition home or self-care (01) | DRG 164 ==
LOC: 2ORMAIN 05:35 → 3SCARD 13:58 → 3NCARDOBS 02-16 07:54
PROVIDERS: ADMIT Thoracic Surgery (Cardiothoracic Vascular Surgery); ATTEND Thoracic Surgery (Cardiothoracic Vascular Surgery)
PROC: 07B74ZX Excision of Thorax Lymphatic, Percutaneous Endoscopic Approach, Diagnostic (ICD-10-PCS; 2024-02-14)
PROC: 8E0W4CZ Robotic Assisted Procedure of Trunk Region, Percutaneous Endoscopic Approach (ICD-10-PCS; 2024-02-14)
PROC: 0BTC4ZZ Resection of Right Upper Lung Lobe, Percutaneous Endoscopic Approach (ICD-10-PCS; principal; 2024-02-14 07:30)
DX: C34.11 Malignant neoplasm of upper lobe, right bronchus or lung (principal); J93.83 Other pneumothorax; J44.9 Chronic obstructive pulmonary disease, unspecified; I71.40 Abdominal aortic aneurysm, without rupture, unspecified; I10 Essential (primary) hypertension; E78.5 Hyperlipidemia, unspecified; H35.30 Unspecified macular degeneration; H91.90 Unspecified hearing loss, unspecified ear; E55.9 Vitamin D deficiency, unspecified; G56.02 Carpal tunnel syndrome, left upper limb; T81.82XA Emphysema (subcutaneous) resulting from a procedure, initial encounter; Z87.891 Personal history of nicotine dependence; Z79.82 Long term (current) use of aspirin; Z79.899 Other long term (current) drug therapy
CPT/HCPCS: 64999; 71045; 71046; 80048; 85025; 85610; 85730; 86850; 86900; 86901; 88305; 88309; 88313; 94640; 94760

== ENCOUNTER → 2024-02-21 | Outpatient (CLI) | payer MEDICARE ==
--- NOTE | 2024-02-21 13:04 | XR ---
EXAMINATION TYPE: XR chest 2V DATE OF EXAM: 02/21/2024 12:52 PM COMPARISON: Chest x-ray 5 days earlier CLINICAL INDICATION: Male, 73 years old with history of C34.11, pleural effusion. TECHNIQUE: Frontal and lateral views of the chest are obtained. FINDINGS: There is tiny amount of pleural fluid laterally at site of prior visualized pneumothorax w hich is stable in size or slightly improved. Improving right-sided subcutaneous emphysema is noted. P ersistent right lower lung opacity. Left lung remains clear. Cardiomegaly redemonstrated. Osseous str uctures are intact. IMPRESSION: Small to tiny lateral right pleural fluid collection. [facility], , 02/21/2024 1:01 PM
== END | disposition home or self-care (01) ==
LOC: RADXRMAIN 12:33
PROVIDERS: ATTEND Thoracic Surgery (Cardiothoracic Vascular Surgery)
DX: C34.11 Malignant neoplasm of upper lobe, right bronchus or lung (principal); J90 Pleural effusion, not elsewhere classified
CPT/HCPCS: 71046

== ENCOUNTER → 2024-04-28 | Outpatient (CLI) | payer MEDICARE ==
--- NOTE | 2024-04-28 16:47 | MR ---
EXAMINATION TYPE: MR brain wo/w con DATE OF EXAM: 04/28/2024 3:56 PM COMPARISON: None. CLINICAL INDICATION: Male, 73 years old with history of C34.90; PHH, lung cancer TECHNIQUE: Multi planar, multi sequence imaging was performed through the brain including: T1, T2, In version recovery, susceptibility weighted imaging and gradient echo imaging and Diffusion weighted im aging. The patient was then given intravenous contrast and multi planar, T1 fat-saturation images wer e obtained. IV Contrast: 11 mL Gadobutrol FINDINGS: The ontiveros-white junctions, ventricular system, basal cisterns appear unremarkable. Diffusion-weighted imaging shows no evidence of restricted diffusion to suggest acute/subacute infarct. Intracranial ar terial flow voids are maintained. Midline structures show no abnormality. Scattered foci of high T2 s ignal intensity are seen within the periventricular white matter. The susceptibility weighted images do not reveal any evidence for micro-hemorrhage. After administration of gadolinium, no abnormal enha ncement is seen. The bone marrow signal is within normal limits. Paranasal sinuses and mastoid air cells: No significant paranasal sinus disease. Visualized orbits: Orbital contents are intact. IMPRESSION: 1. No evidence of intracranial mass, acute/subacute infarct, or abnormal enhancement. 2. Nonspecific white matter changes, likely related to small vessel ischemic disease. [facility], , 04/28/2024 4:45 PM
== END | disposition home or self-care (01) ==
LOC: RADMRIMAIN 15:04
PROVIDERS: ATTEND Internal Medicine
DX: C34.90 Malignant neoplasm of unspecified part of unspecified bronchus or lung (principal); E78.5 Hyperlipidemia, unspecified; I10 Essential (primary) hypertension; R90.82 White matter disease, unspecified
CPT/HCPCS: 70553; A9585

== ENCOUNTER → 2024-08-04 | Outpatient (CLI) | payer MEDICARE ==
[2024-08-04 11:41] LABS: African American GFR (CKD) >90 (>60 ml/min/1.73 sqM); Blood Urea Nitrogen 18 mg/dL (9-20); Non-African American GFR(CKD) >90 (>60 ml/min/1.73 sqM)
--- NOTE | 2024-08-05 09:29 | CT ---
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 Reconstructed images are reviewed on [email or web address] computer in the coronal plane. Contrast used:100ml mL of Isovue 300 with IV Contrast, (none if empty) Oral contrast used: (none if empty) CT DLP: 665.6 mGycm, Automated exposure control for dose reduction was used. FINDINGS: Portion of the thyroid visualized is normal. No suspicious lung nodules or focal infiltrates are present. Right upper lung field has resolved No enlarged mediastinal or hilar adenopathy is evident. The ascending aorta diameter at the level o f the main pulmonary artery is 4.2 cm. The main pulmonary artery diameter at the bifurcation is 2.1 cm. No significant coronary artery calcifications. Limited CT sections are obtained through the upper abdomen. Abdomen is essentially unremarkable. IMPRESSION: 1. No acute pulmonary process. [facility], , 08/05/2024 9:27 AM
== END | disposition home or self-care (01) ==
LOC: RADCTMAIN 11:03
PROVIDERS: ATTEND Internal Medicine Critical Care Medicine
DX: C34.90 Malignant neoplasm of unspecified part of unspecified bronchus or lung (principal); Z90.2 Acquired absence of lung [part of]
CPT/HCPCS: 82565; 84520; 71260; 36415; Q9967